=== PATIENT | female | born 1985 | race African-American/Black ===

== ENCOUNTER 2016-07-19 23:17 | Emergency (ER) | payer MEDICAID ==
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
[2016-07-20 02:27] VITALS: BP 135/85
--- NOTE | 2016-07-20 10:36 | EKG REPORT ---
SEVERITY:- OTHERWISE NORMAL ECG - SINUS TACHYCARDIA : Confirmed by: Jerry Hart 20-Jul-2016 10:35:08
== END 2016-07-20 03:21 | disposition home or self-care (01) ==
LOC: ER 23:17
DX: F43.0 Acute stress reaction (principal); R07.89 Other chest pain; R00.2 Palpitations; I10 Essential (primary) hypertension; F17.200 Nicotine dependence, unspecified, uncomplicated
CPT/HCPCS: 93005; 93010; 99284

== ENCOUNTER → 2016-08-08 | Outpatient (CLI) | payer MEDICAID, OTHER ==
[2016-08-08 13:45] LABS: ABSOLUTE BASOPHILS # (AUTO) 0.1 10^3/uL (0.0-0.2); ABSOLUTE EOSINOPHILS # (AUTO) 0.1 10^3/uL (0.0-0.6); ABSOLUTE MONOCYTES (AUTO) 0.3 10^3/uL (0.1-1.4); ABSOLUTE NEUT (AUTO) 6.6 10^3/uL (1.7-8.2); BASOPHILS % (AUTO) 0.9 % (0-2); EOSINOPHILS % (AUTO) 0.6 % (0-6); HEMATOCRIT 36.1 % (36.0-47.0); HEMOGLOBIN 12.1 g/dL (12.0-15.5); HGB HCT DIFFERENCE 0.2; LYMPHOCYTES % (AUTO) 22.2 % (13-45); MEAN CORPUSCULAR HEMOGLOBIN 30.1 pg (27.0-33.4); MEAN CORPUSCULAR HGB CONC 33.5 g/dL (32.0-36.0); MEAN CORPUSCULAR VOLUME 90 fl (80-97); MONOCYTES % (AUTO) 3.2 % (3-13); RED BLOOD COUNT 4.01 10^6/uL (3.72-5.28); RED CELL DISTRIBUTION WIDTH 13.6 % (11.5-14.0); SEGMENTED NEUTROPHILS % (AUTO) 73.1 % (42-78)
[2016-08-08 14:02] LABS: ALANINE AMINOTRANSFERASE 28 U/L (9-52); ALBUMIN 4.5 g/dL (3.5-5.0); ALKALINE PHOSPHATASE 58 U/L (38-126); ANION GAP 12 (5-19); ASPARTATE AMINO TRANSFERASE 27 U/L (14-36); BILIRUBIN,TOTAL 0.6 mg/dL (0.2-1.3); BLOOD UREA NITROGEN 10 mg/dL (7-20); CALCIUM 10.4 mg/dL (8.4-10.2); CARBON DIOXIDE 21 mmol/L (22-30); CHLORIDE 105 mmol/L (98-107); CREATININE RESULT 0.71 mg/dL (0.52-1.25); GLUCOSE 115 mg/dL (75-110); POTASSIUM 4.6 mmol/L (3.6-5.0); SODIUM 138.2 mmol/L (137-145); TOTAL PROTEIN 7.9 g/dL (6.3-8.2)
--- NOTE | 2016-08-08 18:07 | EKG REPORT ---
SEVERITY:- NORMAL ECG - SINUS RHYTHM : Confirmed by: Sasha Hernandez MD 08-Aug-2016 18:06:29
== END ==
LOC: OD 12:27
PROVIDERS: ATTEND Nurse Practitioner Acute Care
DX: R42 Dizziness and giddiness (principal)
CPT/HCPCS: 36415; 80053; 83036; 84443; 85025; 93005; 93010

== ENCOUNTER 2016-10-09 21:23 | Emergency (ER) | payer MEDICAID ==
[2016-10-09 23:02] VITALS: BP 124/87
--- NOTE | 2016-10-09 23:19 | ER Document Report ---
ED General - General Chief Complaint: Foot Injury Stated Complaint: RIGHT FOOT PAIN Notes: Patient is a 31 year old female who says that she was wrestling with a friend earlier today. She has some pain in her foot during this. As the day went on her foot became more painful swollen. Pain is at the first MTP of the right foot. She does have a bunion over the area but says this has been there for a while and is nothing new. No other trauma or injuries. No pain in the ankle or knee. No other complaints at this time. TRAVEL OUTSIDE OF THE [place] IN LAST 30 DAYS: No - Related Data Allergies/Adverse Reactions: cinnamon [Cinnamon] Allergy (Verified 10/09/16 23:42) Penicillins Allergy (Verified 10/09/16 23:42) Past Medical History - Social History Smoking Status: Never Smoker Frequency of alcohol use: None Drug Abuse: None Family History: Arthritis, CAD - Mother [place], CVA, DM, Hyperlipidemia, Hypertension - Past Medical History Cardiac Medical History: Reports: Hx Hypertension - unmedicated Neurological Medical History: Reports: Hx Migraine Renal/ Medical History: Reports: Hx Ovarian Cysts. Denies: Hx Peritoneal Dialysis GI Medical History: Reports: Hx Crohn's Disease, Hx Gastroesophageal Reflux Disease, Hx Irritable Bowel, Hx Colonoscopy, Hx Endoscopy Musculoskeltal Medical History: Reports Hx Arthritis, Reports Hx Musculoskeletal Deformity, Reports Hx Musculoskeletal Trauma Psychiatric Medical History: Reports: Hx Anxiety, Hx Bipolar Disorder, Hx Depression, Hx Post Traumatic Stress Disorder Past Surgical History: Reports: Hx Gynecologic Surgery - ovarian cyst - Immunizations Immunizations up to date: Yes Hx Diphtheria, Pertussis, Tetanus Vaccination: Yes Hx Pneumococcal Vaccination: 03/15/14 Review of Systems - Review of Systems Notes: My Normal Review Basic REVIEW OF SYSTEMS: CONSTITUTIONAL : Denies fever, chills, or sweats. Denies recent illness. MUSCULOSKELETAL: Pain over right first MTP joint. SKIN: Denies rash or skin lesions. NEUROLOGICAL: Denies altered mental status or loss of consciousness. Denies headache. Denies weakness or paralysis or loss of use of either side. Denies problems with gait or speech. Denies sensory or motor loss. ALL OTHER SYSTEMS REVIEWED AND NEGATIVE. Physical Exam - Vital signs Vitals: Temp Pulse Resp BP Pulse Ox 98.3 F 85 15 124/87 H 100 10/09/16 23:00 10/09/16 23:00 10/09/16 23:00 10/09/16 23:00 10/09/16 23:00 - Notes Notes: General Appearance: Well nourished, alert, cooperative, no acute distress, mild obvious discomfort. Vitals: reviewed, See vital signs table. Extremities: strength 5/5 in all extremities, good pulses in all extremities, small bunion over right first MTP. No redness or warmth over the area. Pain to palpation over this joint. Pain with movement of the big toe. Remainder foot is nontender. Ankle is nontender. Skin: warm, dry, appropriate color, no rash Neuro: speech clear, oriented x 3, normal affect, responds appropriately to questions. Course - Vital Signs Vital signs: Temp Pulse Resp BP Pulse Ox 98.3 F 85 15 124/87 H 100 10/09/16 23:00 10/09/16 23:00 10/09/16 23:00 10/09/16 23:00 10/09/16 23:00 - Transfer of Care Notes: 10/10/16 06:14 Patient will be discharged home. Her x-ray is negative. She most likely has a sprain of her first metatarsophalangeal joint. Patient will be given crutches and a postop hard shoe. Patient encouraged to follow closely with her primary care doctor. Patient currently is return to ER she has further concerns. Patient agrees with plan will be discharged home. Dictation of this chart was performed using voice recognition software; therefore, there may be some unintended grammatical errors. Discharge - Discharge Clinical Impression: Strain of toe of right foot Qualifiers: Encounter type: initial encounter Qualified Code(s): S96.911A - Strain of unspecified muscle and tendon at ankle and foot level, right foot, initial encounter Condition: Good Disposition: HOME, SELF-CARE Additional Instructions: Please use the crutches as needed for pain with weight bearing. Please use the hard sole velcroe shoe we have given you. Please follow up with your doctor in 1 week. I have included the number to the orthopedist for you to follow up with if you are unable to get into a primary care doctor and still have pain after one week. Referrals: ROSALIE RM MD [Primary Care Provider] - Follow up as needed DAWIT WHITING MD [ACTIVE STAFF] - Follow up in 1 week
== END 2016-10-10 00:20 | disposition home or self-care (01) ==
LOC: ER 21:23
DX: S96.911A Strain of unspecified muscle and tendon at ankle and foot level, right foot, initial encounter (principal); M79.671 Pain in right foot; X58.XXXA Exposure to other specified factors, initial encounter
CPT/HCPCS: 99283

== ENCOUNTER 2017-01-11 16:07 | Emergency (ER) | payer MEDICAID ==
[2017-01-11] MEDS ORDERED: NORMAL SALINE 1000 ML 1,000 ML IV PRN (17:06)
--- NOTE | 2017-01-11 17:06 | ER Document Report ---
ED Medical Screen (RME) - General Chief Complaint: Dizziness Stated Complaint: DIZZY,WEAK Time Seen by Provider: 01/11/17 16:59 Mode of Arrival: Ambulatory Information source: Patient TRAVEL OUTSIDE OF THE [place] IN LAST 30 DAYS: No - HPI Patient complains to provider of: Dizziness, nausea Notes: 01/11/17 17:05 Patient is a 31-year-old female who presents to the emergency room complaining of nausea, dizziness, lightheadedness, pressure in her head, causing "fluid leakage from my brain down the back of my throat", she reports that this is been going on since April but getting worse causing her to come to the ER for visit today - Related Data Allergies/Adverse Reactions: cinnamon [Cinnamon] Allergy (Verified 01/11/17 16:29) Penicillins Allergy (Verified 01/11/17 16:29) Past Medical History - Social History Chew tobacco use (# tins/day): No Frequency of alcohol use: None Drug Abuse: None - Past Medical History Cardiac Medical History: Reports: Hx Hypertension - unmedicated Neurological Medical History: Reports: Hx Migraine Renal/ Medical History: Reports: Hx Ovarian Cysts. Denies: Hx Peritoneal Dialysis GI Medical History: Reports: Hx Crohn's Disease, Hx Gastroesophageal Reflux Disease, Hx Irritable Bowel, Hx Colonoscopy, Hx Endoscopy Musculoskeltal Medical History: Reports Hx Arthritis, Reports Hx Musculoskeletal Deformity, Reports Hx Musculoskeletal Trauma Psychiatric Medical History: Reports: Hx Anxiety, Hx Bipolar Disorder, Hx Depression, Hx Post Traumatic Stress Disorder Past Surgical History: Reports: Hx Gynecologic Surgery - ovarian cyst - Immunizations Immunizations up to date: Yes Hx Diphtheria, Pertussis, Tetanus Vaccination: Yes Physical Exam - Vital signs Vitals: Temp Pulse Resp BP Pulse Ox 98.9 F 104 H 16 142/101 H 100 01/11/17 16:29 01/11/17 16:29 01/11/17 16:29 01/11/17 16:29 01/11/17 16:29 Course - Vital Signs Vital signs: Temp Pulse Resp BP Pulse Ox 98.9 F 104 H 16 142/101 H 100 01/11/17 16:29 01/11/17 16:29 01/11/17 16:29 01/11/17 16:29 01/11/17 16:29
[2017-01-11 17:43] LABS: ABSOLUTE BASOPHILS # (AUTO) 0.2 10^3/uL (0.0-0.2); ABSOLUTE EOSINOPHILS # (AUTO) 0.1 10^3/uL (0.0-0.6); ABSOLUTE LYMPHOCYTES (AUTO) 2.9 10^3/uL (0.5-4.7); ABSOLUTE NEUT (AUTO) 10.5 10^3/uL (1.7-8.2); BASOPHILS % (AUTO) 1.2 % (0-2); EOSINOPHILS % (AUTO) 0.9 % (0-6); HEMATOCRIT 40.4 % (36.0-47.0); HGB HCT DIFFERENCE -1.4; LYMPHOCYTES % (AUTO) 19.9 % (13-45); MEAN CORPUSCULAR HEMOGLOBIN 29.1 pg (27.0-33.4); MEAN CORPUSCULAR HGB CONC 32.2 g/dL (32.0-36.0); MEAN CORPUSCULAR VOLUME 90 fl (80-97); MONOCYTES % (AUTO) 6.6 % (3-13); RED BLOOD COUNT 4.48 10^6/uL (3.72-5.28); RED CELL DISTRIBUTION WIDTH 13.6 % (11.5-14.0); SEGMENTED NEUTROPHILS % (AUTO) 71.4 % (42-78); WHITE BLOOD COUNT 14.7 10^3/uL (4.0-10.5)
[2017-01-11 17:47] LABS: APPEARANCE,URINE CLEAR; BILIRUBIN,URINE NEGATIVE (NEGATIVE); GLUCOSE, URINE NEGATIVE (NEGATIVE); KETONES,URINE NEGATIVE (NEGATIVE); LEUKOCYTE ESTERASE,URINE NEGATIVE (NEGATIVE); NITRITE,URINE NEGATIVE (NEGATIVE); PROTEIN,URINE NEGATIVE (NEGATIVE); URINE SPECIFIC GRAVITY 1.006; UROBILINOGEN,URINE NEGATIVE mg/dL (<2.0)
[2017-01-11 17:56] LABS: ALANINE AMINOTRANSFERASE 21 U/L (9-52); ALKALINE PHOSPHATASE 70 U/L (38-126); ANION GAP 15 (5-19); ASPARTATE AMINO TRANSFERASE 17 U/L (14-36); BILIRUBIN,DIRECT 0.2 mg/dL (0.0-0.4); BILIRUBIN,TOTAL 0.7 mg/dL (0.2-1.3); BLOOD UREA NITROGEN 9 mg/dL (7-20); CALCIUM 10.5 mg/dL (8.4-10.2); CARBON DIOXIDE 22 mmol/L (22-30); CHLORIDE 102 mmol/L (98-107); CREATININE RESULT 0.87 mg/dL (0.52-1.25); GLUCOSE 92 mg/dL (75-110); POTASSIUM 4.5 mmol/L (3.6-5.0); TOTAL PROTEIN 9.1 g/dL (6.3-8.2)
[2017-01-11 17:59] LABS: URINE BARBITURATES SCREEN NEGATIVE; URINE METHADONE SCREEN NEGATIVE; URINE OPIATES LOW NEGATIVE; URINE PHENCYCLIDINE SCREEN NEGATIVE
--- NOTE | 2017-01-11 19:46 | ER Document Report ---
ED Dizziness/Weakness - General Chief Complaint: Dizziness Stated Complaint: DIZZY,WEAK Time Seen by Provider: 01/11/17 16:59 Mode of Arrival: Ambulatory Information source: Patient TRAVEL OUTSIDE OF THE [place] IN LAST 30 DAYS: No - HPI Patient complains to provider of: Dizziness Onset: Other - 6 months Onset/Duration: Waxing and waning Quality of pain: Achy Severity: Mild Pain Level: 1 Associated symptoms: Headache, Lightheaded, Weak all over Notes: Patient is a 31-year-old female who presents to the emergency room complaining of nausea, dizziness, lightheadedness, pressure in her head, causing "fluid leakage from my brain down the back of my throat", she reports that this is been going on since April but getting worse causing her to come to the ER for visit today - Related Data Allergies/Adverse Reactions: cinnamon [Cinnamon] Allergy (Verified 01/11/17 16:29) Penicillins Allergy (Verified 01/11/17 16:29) Past Medical History - General Information source: Patient - Social History Smoking Status: Never Smoker Chew tobacco use (# tins/day): No Frequency of alcohol use: None Drug Abuse: None Family History: Arthritis, CAD - Mother [place], CVA, DM, Hyperlipidemia, Hypertension - Past Medical History Cardiac Medical History: Reports: Hx Hypertension - unmedicated Neurological Medical History: Reports: Hx Migraine Renal/ Medical History: Reports: Hx Ovarian Cysts. Denies: Hx Peritoneal Dialysis GI Medical History: Reports: Hx Crohn's Disease, Hx Gastroesophageal Reflux Disease, Hx Irritable Bowel, Hx Colonoscopy, Hx Endoscopy Musculoskeltal Medical History: Reports Hx Arthritis, Reports Hx Musculoskeletal Deformity, Reports Hx Musculoskeletal Trauma Psychiatric Medical History: Reports: Hx Anxiety, Hx Bipolar Disorder, Hx Depression, Hx Post Traumatic Stress Disorder Past Surgical History: Reports: Hx Gynecologic Surgery - ovarian cyst - Immunizations Immunizations up to date: Yes Hx Diphtheria, Pertussis, Tetanus Vaccination: Yes Hx Pneumococcal Vaccination: 03/15/14 Review of Systems - Review of Systems Constitutional: No symptoms reported EENT: See HPI Cardiovascular: Dizziness, Lightheaded Respiratory: No symptoms reported Gastrointestinal: No symptoms reported Genitourinary: No symptoms reported Female Genitourinary: No symptoms reported Musculoskeletal: No symptoms reported Skin: No symptoms reported Hematologic/Lymphatic: No symptoms reported Neurological/Psychological: Headaches -: Yes All other systems reviewed and negative Physical Exam - Vital signs Vitals: Temp Pulse Resp BP Pulse Ox 98.9 F 104 H 16 142/101 H 100 01/11/17 16:29 01/11/17 16:29 01/11/17 16:29 01/11/17 16:29 01/11/17 16:29 Interpretation: Normal - General General appearance: Appears well, Alert - HEENT Head: Normocephalic, Atraumatic Eyes: Normal Conjunctiva: Normal Extraocular movements intact: Yes Eyelashes: Normal Pupils: PERRL Tympanic membrane: Bulging. No: Injected Sinus: Maxillary, Tenderness Nasal: Swelling, Clear rhinorrhea Mouth/Lips: Normal Mucous membranes: Normal Pharynx: Erythema Neck: Normal - Respiratory Respiratory status: No respiratory distress Chest status: Nontender Breath sounds: Normal Chest palpation: Normal - Cardiovascular Rhythm: Regular Heart sounds: Normal auscultation Murmur: No - Abdominal Inspection: Normal Distension: No distension Bowel sounds: Normal Tenderness: Nontender Organomegaly: No organomegaly - Back Back: Normal, Nontender - Extremities General upper extremity: Normal inspection, Nontender, Normal color, Normal ROM , Normal temperature General lower extremity: Normal inspection, Nontender, Normal color, Normal ROM , Normal temperature, Normal weight bearing. No: Keya's sign - Neurological Neuro grossly intact: Yes Cognition: Normal Orientation: AAOx4 [place] Coma Scale Eye Opening: Spontaneous [place] Coma Scale Verbal: Oriented [place] Coma Scale Motor: Obeys Commands [place] Coma Scale Total: 15 Speech: Normal Motor strength normal: LUE, RUE, LLE, RLE Sensory: Normal - Psychological Associated symptoms: Normal affect, Normal mood - Skin Skin Temperature: Warm Skin Moisture: Dry Skin Color: Normal Course - Re-evaluation Re-evalutation: 01/11/17 21:24 Patient reports feeling much better after receiving IV fluids, leukocytosis is consistent with possible infection, I believe patient's symptoms are likely related to a sinus infection with postnasal drip causing her to feel the sensation of fluid dripping down her throat and giving her a foul taste in her mouth at times, therefore patient was started on antibiotics and provided with prescription for antihistamine and decongestant medication, advised to follow- up with a primary care provider in 2-3 days or return if symptoms worsen, patient acknowledges understanding and agreement with this plan - Vital Signs Vital signs: Temp Pulse Resp BP Pulse Ox 98.7 F 87 16 144/96 H 99 01/11/17 20:04 01/11/17 20:04 01/11/17 20:04 01/11/17 20:04 01/11/17 20:04 - Laboratory Result Diagrams: 01/11/17 17:12 01/11/17 17:12 Laboratory results interpreted by me: 01/11/17 01/11/17 17:12 17:12 WBC 14.7 H Absolute Neutrophils 10.5 H Calcium 10.5 H Total Protein 9.1 H Discharge - Discharge Clinical Impression: Sinusitis Qualifiers: Sinusitis location: maxillary Chronicity: acute Recurrence: non-recurrent Qualified Code(s): J01.00 - Acute maxillary sinusitis, unspecified Condition: Stable Disposition: HOME, SELF-CARE Instructions: Dizziness ([facility]), Sinusitis ([facility]) Additional Instructions: Follow up with your primary care provider in one to 2 days. Return to the emergency room immediately if symptoms worsen or any additional concerns. Prescriptions: Doxycycline Hyclate 100 mg PO BID #14 tablet Ibuprofen/Pseudoephedrine HCl [Advil Cold & Sinus Caplet] 1 each PO BID #14 tablet
[2017-01-11 20:06] VITALS: BP 144/96
== END 2017-01-11 20:07 | disposition home or self-care (01) ==
LOC: ER 16:07
DX: J01.00 Acute maxillary sinusitis, unspecified (principal); R42 Dizziness and giddiness; R51 Headache; R53.1 Weakness; R11.0 Nausea; I10 Essential (primary) hypertension; J34.89 Other specified disorders of nose and nasal sinuses; Z88.0 Allergy status to penicillin; Z91.018 Allergy to other foods
CPT/HCPCS: 99284; 96360; 36415; 87086; 84703; 85025; 80053; 81001; 80307; J7030

== ENCOUNTER 2017-03-16 09:54 | Emergency (ER) | payer MEDICAID ==
[2017-03-16 10:18] VITALS: BP 121/83
--- NOTE | 2017-03-16 10:42 | ER Document Report ---
ED GI/ - General Chief Complaint: Urinary Problem Stated Complaint: URINARY PAIN Time Seen by Provider: 03/16/17 10:32 Mode of Arrival: Ambulatory Information source: Patient Notes: 32-year-old female presents to ED for hematuria 3 days with painful urination, patient's states she was treated for yeast infection 2 weeks ago and she still has the same symptoms has not had any relief from the symptoms. TRAVEL OUTSIDE OF THE [place] IN LAST 30 DAYS: No - HPI Patient complains to provider of: Hematuria, Vaginal discharge, Other - Urinary pain frequency blood Onset: Other - 3 days Timing/Duration: Intermittent Quality of pain: Burning, Sharp Pain Level: 4 Location: Left flank, Suprapubic, Vaginal Vaginal bleeding (Compared to normal period): None Associated symptoms: Vaginal discharge Exacerbated by: Other - urination Relieved by: Denies Similar symptoms previously: Yes Recently seen / treated by doctor: Yes - Related Data Allergies/Adverse Reactions: cinnamon [Cinnamon] Allergy (Verified 03/16/17 10:20) Penicillins Allergy (Verified 03/16/17 10:20) Past Medical History - General Information source: Patient - Social History Smoking Status: Former Smoker Cigarette use (# per day): No Chew tobacco use (# tins/day): No Smoking Education Provided: No Frequency of alcohol use: Social Drug Abuse: None Occupation: Call center Lives with: Family Family History: Arthritis, CAD - Mother [place], CVA, DM, Hyperlipidemia, Hypertension Patient has suicidal ideation: No Patient has homicidal ideation: No EENT Medical History: Reports: None Neurological Medical History: Reports: None Endocrine Medical History: Reports: None Renal/ Medical History: Reports: Hx Ovarian Cysts Malignancy Medical History: Reports: None GI Medical History: Reports: Hx Gastroesophageal Reflux Disease, Hx Irritable Bowel, Hx Colonoscopy Musculoskeltal Medical History: Reports Hx Musculoskeletal Deformity, Reports Hx Musculoskeletal Trauma Psychiatric Medical History: Reports: Hx Anxiety, Hx Bipolar Disorder, Hx Depression, Hx Post Traumatic Stress Disorder Traumatic Medical History: Reports: None Infectious Medical History: Reports: None Past Surgical History: Reports: Hx Gynecologic Surgery - ovarian cyst - Immunizations Immunizations up to date: Yes Hx Diphtheria, Pertussis, Tetanus Vaccination: Yes Hx Pneumococcal Vaccination: 03/15/14 Review of Systems - Review of Systems Constitutional: No symptoms reported EENT: No symptoms reported Cardiovascular: No symptoms reported Respiratory: No symptoms reported Gastrointestinal: No symptoms reported Genitourinary: Burning, Frequency, Hematuria, Urgency Female Genitourinary: Vaginal discharge Musculoskeletal: No symptoms reported Skin: No symptoms reported Hematologic/Lymphatic: No symptoms reported Neurological/Psychological: No symptoms reported Physical Exam - Vital signs Vitals: Temp Pulse Resp BP Pulse Ox 98.1 F 78 16 121/83 99 03/16/17 10:15 03/16/17 10:15 03/16/17 10:15 03/16/17 10:15 03/16/17 10:15 Interpretation: Normal - General General appearance: Appears well, Alert - HEENT Head: Normocephalic, Atraumatic Eyes: Normal Pupils: PERRL - Respiratory Respiratory status: No respiratory distress Chest status: Nontender Breath sounds: Normal Chest palpation: Normal - Cardiovascular Rhythm: Regular Heart sounds: Normal auscultation Murmur: No - Abdominal Inspection: Normal Distension: No distension Bowel sounds: Normal Tenderness: Nontender Organomegaly: No organomegaly - Back Back: Normal, Nontender - Extremities General upper extremity: Normal inspection, Nontender, Normal color, Normal ROM , Normal temperature General lower extremity: Normal inspection, Nontender, Normal color, Normal ROM , Normal temperature, Normal weight bearing. No: Keya's sign - Neurological Neuro grossly intact: Yes Cognition: Normal Orientation: AAOx4 [place] Coma Scale Eye Opening: Spontaneous [place] Coma Scale Verbal: Oriented [place] Coma Scale Motor: Obeys Commands [place] Coma Scale Total: 15 Speech: Normal Motor strength normal: LUE, RUE, LLE, RLE Sensory: Normal - Psychological Associated symptoms: Normal affect, Normal mood - Skin Skin Temperature: Warm Skin Moisture: Dry Skin Color: Normal Course - Re-evaluation Re-evalutation: 03/16/17 12:41 Discussed labs with patient and written reports given to patient. Patient knows she is to give a good working number to the nurses so they can call results of GC chlamydia. Patient will be treated with azithromycin and Rocephin prophylactically. - Vital Signs Vital signs: Temp Pulse Resp BP Pulse Ox 98.1 F 78 16 121/83 99 03/16/17 10:15 03/16/17 10:15 03/16/17 10:15 03/16/17 10:15 03/16/17 10:15 - Laboratory Laboratory results interpreted by me: 03/16/17 03/16/17 10:20 10:42 Ur Leukocyte Esterase TRACE H Urine Ascorbic Acid 40 H 40 H Discharge - Discharge Clinical Impression: Pelvic pain Vaginitis Qualifiers: Chronicity: acute Qualified Code(s): N76.0 - Acute vaginitis Condition: Stable Disposition: HOME, SELF-CARE Additional Instructions: VAGINITIS: Your exam shows that you have vaginitis, a vaginal infection. The infection can be caused by a many different organisms, including trichomonas or Gardnerella. The usual symptoms are vaginal irritation and discharge. The treatment is usually antibiotics such as Flagyl. Laboratory tests can determine which germ is responsible. Use the medication as prescribed. Because this infection can be transmitted sexually, your sexual partner may need to be checked and treated also. If your physician has not discussed this with you, please check before resuming sexual relations. If a culture shows gonorrhea or chlamydia, the infection must be reported to the health department. Call the doctor if you develop pelvic pain, fever, or problems with urination, or if you don't improve as expected. CEPHALOSPORINS: An antibiotic of the cephalosporin class has been prescribed. This type of antibiotic covers a wide variety of infections, including those of the skin, lungs, middle ear, and urinary tract. This antibiotic is somewhat similar to the penicillin family. In rare cases , a person who is allergic to penicillin will also be allergic to this medication. If you have had a severe allergic reaction to penicillin, and have not taken this antibiotic since that time, notify your doctor. Antibiotics which cover many germs ("broad spectrum" antibiotics) are more likely to cause diarrhea or "yeast" infections. Women prone to vaginal yeast problems may suffer an attack after taking this antibiotic. In infants, oral thrush (white spots "stuck" on the cheek) or yeast diaper rash may result. See your doctor if these problems occur. Call the doctor at once if you develop hives, itching, shortness of breath , or lightheadedness. AZITHROMYCIN: Azithromycin (Zithromax) is a broad spectrum antibiotic in the same class as erythromycin. It can treat a variety of bacterial infections, but is most frequently used for respiratory infections. Azithromycin is extremely long-lasting. It accumulates in body tissues and continues to kill bacteria for many days. In order to improve absorption, Azithromycin should be taken at least one hour before or two hours after a meal. It does not have the same strong tendency to upset the stomach as erythromycin and is usually very well tolerated. Patients who have had a rash or other true allergic reactions to erythromycin should not take this medication. Call if you develop gastrointestinal distress, severe diarrhea, rash, hives, itching, or shortness of breath. FOLLOW-UP CARE: If you have been referred to a physician for follow-up care, call the physician s office for an appointment as you were instructed or within the next two days. If you experience worsening or a significant change in your symptoms, notify the physician immediately or return to the Emergency Department at any time for re-evaluation. Forms: Return to Work Referrals: ROSALIE RM MD [Primary Care Provider] - Follow up as needed [facility] [Provider Group] - Follow up as needed
[2017-03-16 11:05] LABS: APPEARANCE,URINE SLIGHTLY-CLOUDY; BILIRUBIN,URINE NEGATIVE (NEGATIVE); GLUCOSE, URINE NEGATIVE (NEGATIVE); KETONES,URINE NEGATIVE (NEGATIVE); LEUKOCYTE ESTERASE,URINE TRACE (NEGATIVE); NITRITE,URINE NEGATIVE (NEGATIVE); PROTEIN,URINE NEGATIVE (NEGATIVE); URINE SPECIFIC GRAVITY 1.026; UROBILINOGEN,URINE NEGATIVE mg/dL (<2.0)
[2017-03-16] MEDS ORDERED: AZITHROMYCIN 250 MG TABLET PO ONE (11:59)
[2017-03-16] MEDS ORDERED: LIDOCAINE 1% INJ-PF (10 MG/ML) 30 ML SDV INJ ONE (11:59)
[2017-03-16] MEDS ORDERED: CEFTRIAXONE INJ 250 MG VIAL IM ONE (11:59)
[2017-03-16 12:00] LABS: APPEARANCE,URINE CLEAR; BILIRUBIN,URINE NEGATIVE (NEGATIVE); GLUCOSE, URINE NEGATIVE (NEGATIVE); KETONES,URINE NEGATIVE (NEGATIVE); LEUKOCYTE ESTERASE,URINE NEGATIVE (NEGATIVE); NITRITE,URINE NEGATIVE (NEGATIVE); PROTEIN,URINE NEGATIVE (NEGATIVE); URINE SPECIFIC GRAVITY 1.025; UROBILINOGEN,URINE NEGATIVE mg/dL (<2.0)
[2017-03-16 13:15] LABS: CHLAM PCR NOT DETECTED (NOT DETECT)
== END 2017-03-16 13:13 | disposition home or self-care (01) ==
LOC: ER 09:54
DX: N76.0 Acute vaginitis (principal); R10.2 Pelvic and perineal pain; R31.9 Hematuria, unspecified; R35.0 Frequency of micturition; R39.15 Urgency of urination; Z91.018 Allergy to other foods; Z88.0 Allergy status to penicillin; Z87.42 Personal history of other diseases of the female genital tract; Z87.19 Personal history of other diseases of the digestive system
CPT/HCPCS: 99283; 96372; 51701; 87210; 81025; 81001; 87491; 87591; Q0144; J3490; J0696

== ENCOUNTER 2017-06-17 16:40 | Emergency (ER) | payer MEDICAID ==
[2017-06-17 20:39] LABS: APPEARANCE,URINE CLOUDY; BILIRUBIN,URINE NEGATIVE (NEGATIVE); COLOR,URINE YELLOW; GLUCOSE, URINE NEGATIVE (NEGATIVE); KETONES,URINE NEGATIVE (NEGATIVE); LEUKOCYTE ESTERASE,URINE NEGATIVE (NEGATIVE); NITRITE,URINE NEGATIVE (NEGATIVE); PROTEIN,URINE NEGATIVE (NEGATIVE); URINE SPECIFIC GRAVITY 1.025
[2017-06-17 20:44] LABS: BACTERIA (WET MOUNT) 3+ BACTERIA SEEN; EPITHELIALS (WET MOUNT) 4+ EPITHELIALS SEEN; T.VAGINALIS (WET MOUNT) NO TRICHOMONAS SEEN; WBCS (WET MOUNT) RARE WBCS SEEN; YEAST (WET MOUNT) NO YEAST SEEN
[2017-06-17] MEDS ORDERED: LIDOCAINE 1% INJ-PF (10 MG/ML) 30 ML SDV INJ ONE (21:05)
[2017-06-17] MEDS ORDERED: AZITHROMYCIN 250 MG TABLET PO ONE (21:05)
[2017-06-17] MEDS ORDERED: CEFTRIAXONE INJ 250 MG VIAL IM ONE (21:05)
[2017-06-17] MEDS ORDERED: METRONIDAZOLE 500 MG TABLET PO ONE (21:06)
--- NOTE | 2017-06-17 21:09 | ER Document Report ---
HPI - HPI Patient complains to provider of: vaginal discharge, pelvic pain Pain Level: 4 Context: Patient is a 32-year-old female that comes emergency department for chief complaint of pelvic cramping, vaginal discharge, and a bad odor. She denies dysuria. She denies flank pain, nausea or vomiting, fever or chills. She states she is sexually active, she is unsure if she may have had exposure to an STD. - REPRODUCTIVE Reproductive: REPORTS: Abnormal bleeding / discharge - foul smelling. DENIES: : Past Medical History - General Information source: Patient - Social History Smoking Status: Current Some Day Smoker Chew tobacco use (# tins/day): No Frequency of alcohol use: Social Drug Abuse: None Lives with: Family Family History: Arthritis, CAD - Mother [place], CVA, DM, Hyperlipidemia, Hypertension Patient has suicidal ideation: No Patient has homicidal ideation: No - Past Medical History Cardiac Medical History: Reports: Hx Hypertension - unmedicated Neurological Medical History: Reports: Hx Migraine Renal/ Medical History: Reports: Hx Ovarian Cysts. Denies: Hx Peritoneal Dialysis GI Medical History: Reports: Hx Crohn's Disease, Hx Gastroesophageal Reflux Disease, Hx Irritable Bowel, Hx Colonoscopy, Hx Endoscopy Musculoskeltal Medical History: Reports Hx Arthritis, Reports Hx Musculoskeletal Deformity, Reports Hx Musculoskeletal Trauma Psychiatric Medical History: Reports: Hx Anxiety, Hx Bipolar Disorder, Hx Depression, Hx Post Traumatic Stress Disorder Past Surgical History: Reports: Hx Gynecologic Surgery - ovarian cyst - Immunizations Immunizations up to date: Yes Hx Diphtheria, Pertussis, Tetanus Vaccination: Yes Hx Pneumococcal Vaccination: 03/15/14 Vertical Provider Document - CONSTITUTIONAL General Appearance: WD/WN, No Apparent Distress - INFECTION CONTROL TRAVEL OUTSIDE OF THE [place] IN LAST 30 DAYS: No - HEENT HEENT: Atraumatic, Normal ENT Exam, Normocephalic - RESPIRATORY Respiratory: Breath Sounds Normal, No Respiratory Distress O2 Sat by Pulse Oximetry: 98 - CARDIOVASCULAR Cardiovascular: Regular Rate, Regular Rhythm - GI/ABDOMEN Gastrointestinal: Abdomen Soft, Abdomen Non-Tender - REPRODUCTIVE Female Genitalia: negative: Normal Inspection - Normal external inspection, on speculum exam there is moderately large amount of whitish discharge, there is odor, cervix unremarkable, no bleeding, no lesions, otherwise unremarkable examination. FAY Maya present during examination. - NEURO Level of Consciousness: Awake, Alert, Appropriate Motor/Sensory: No Motor Deficit, No Sensory Deficit - DERM Integumentary: Warm, Dry, No Rash Course - Re-evaluation Re-evalutation: Patient with no noted tenderness to the abdomen on palpation, no guarding, well- appearing patient, unremarkable vital signs. HCG is negative, urinalysis unremarkable. Pelvic exam with foul odor and moderately large amount of whitish discharge, 3+ bacteria on wet mount, consistent with bacterial vaginosis. No yeast, negative Trichomonas, only a few white blood cells. Discussed this with patient, because of questionable exposure she is asking to be treated and then have her pending results reported later. Discussed precautions, follow-up, return precautions. Patient states understanding and agreement. 06/18/17 01:00 Called patient at [phone] as she requested and reported negative pending results. - Vital Signs Vital signs: Temp Pulse Resp BP Pulse Ox 98.6 F 87 20 118/69 98 06/17/17 16:45 06/17/17 16:45 06/17/17 16:45 06/17/17 16:45 06/17/17 16:45 - Laboratory Laboratory results interpreted by me: 06/17/17 20:16 Urine Urobilinogen 2.0 H Discharge - Discharge Clinical Impression: Vaginal discharge, Pelvic pain Condition: Stable Disposition: HOME, SELF-CARE Additional Instructions: Your workup indicates bacterial vaginosis, take Flagyl as prescribed for this. See additional details below. You have been covered for pelvic infection, we have remaining tests pending which you will be contacted about. Follow-up with primary care. Return for any concerning or worsening symptoms including vomiting, fever, severe pain, etc. Your exam shows you have bacterial vaginosis. This condition is due to an overgrowth of bacteria in the vagina. Symptoms may include vaginal itching or pain, a smelly discharge, and sometimes burning with urination. Normally this is not transmitted by sexual contact. Vaginosis can be treated with oral or topical antibiotics. Metronidazole ( Flagyl) pills are usually effective. Topical vaginal creams include Cleocin and Metro-Gel. You should avoid sexual contact until your symptoms are all better. Call the doctor if you develop pelvic pain, fever, or problems with urination, or if you don't improve as expected. Prescriptions: Metronidazole [Flagyl 500 mg Tablet] 500 mg PO BID #14 tablet
[2017-06-17 21:29] VITALS: BP 121/75
[2017-06-17 22:10] LABS: CHLAM PCR NOT DETECTED (NOT DETECT); GON PCR NOT DETECTED (NOT DETECT)
== END 2017-06-17 21:25 | disposition home or self-care (01) ==
LOC: ER 16:40
DX: N89.8 Other specified noninflammatory disorders of vagina (principal); R10.2 Pelvic and perineal pain; F17.200 Nicotine dependence, unspecified, uncomplicated
CPT/HCPCS: 99283; 96372; 87210; 81025; 81001; 87491; 87591; Q0144; J3490 ×2; J0696

== ENCOUNTER 2017-06-28 11:35 | Emergency (ER) | payer MEDICAID ==
--- NOTE | 2017-06-28 12:47 | ER Document Report ---
HPI - HPI Patient complains to provider of: cervix lump Onset: Other - yesterday Pain Level: 4 Context: 32 yo female has cervix pain, felt inside and said that she had a lump on her cervix which she thinks may be causing the pain. Seen in ER 1 week ago, tx for std, BV, (cx were negtive). No fever, dysuria, vaginal discharge. Associated Symptoms: None Exacerbated by: Denies Relieved by: Denies Similar symptoms previously: No Recently seen / treated by doctor: No - ROS ROS below otherwise negative: Yes Systems Reviewed and Negative: Yes All other systems reviewed and negative - REPRODUCTIVE Reproductive: DENIES: : Past Medical History - General Information source: Patient - Social History Smoking Status: Current Some Day Smoker Chew tobacco use (# tins/day): No Frequency of alcohol use: Occasional Drug Abuse: None Family History: Arthritis, CAD - Mother [place], CVA, DM, Hyperlipidemia, Hypertension Patient has suicidal ideation: No Patient has homicidal ideation: No - Past Medical History Cardiac Medical History: Reports: Hx Hypertension - unmedicated Neurological Medical History: Reports: Hx Migraine Renal/ Medical History: Reports: Hx Ovarian Cysts. Denies: Hx Peritoneal Dialysis GI Medical History: Reports: Hx Crohn's Disease, Hx Gastroesophageal Reflux Disease, Hx Irritable Bowel, Hx Colonoscopy, Hx Endoscopy Musculoskeltal Medical History: Reports Hx Arthritis, Reports Hx Musculoskeletal Deformity, Reports Hx Musculoskeletal Trauma Psychiatric Medical History: Reports: Hx Anxiety, Hx Bipolar Disorder, Hx Depression, Hx Post Traumatic Stress Disorder Past Surgical History: Reports: Hx Gynecologic Surgery - ovarian cyst - Immunizations Immunizations up to date: Yes Hx Diphtheria, Pertussis, Tetanus Vaccination: Yes Hx Pneumococcal Vaccination: 03/15/14 Vertical Provider Document - CONSTITUTIONAL Agree With Documented VS: Yes Exam Limitations: No Limitations General Appearance: No Apparent Distress - INFECTION CONTROL TRAVEL OUTSIDE OF THE [place] IN LAST 30 DAYS: No - HEENT HEENT: Normal ENT Exam - NECK Neck: Supple. negative: Lymphadenopathy-Left, Lymphadenopathy-Right - RESPIRATORY Respiratory: Breath Sounds Normal, No Respiratory Distress O2 Sat by Pulse Oximetry: 100 - CARDIOVASCULAR Cardiovascular: Regular Rate, Regular Rhythm - GI/ABDOMEN Gastrointestinal: Abdomen Soft, Abdomen Non-Tender, No Organomegaly - REPRODUCTIVE Female Genitalia: Normal Inspection. negative: CMT, Adnexal Pain-Right, Adnexal Pain-Left Notes: cervix normal, no discharge. No lesions on cervix. Nurse at bedside for pelvic exam. Course - Re-evaluation Re-evalutation: 06/28/17 labs negative. - Vital Signs Vital signs: Temp Pulse Resp BP Pulse Ox 98.5 F 78 18 132/80 H 100 06/28/17 11:40 06/28/17 11:40 06/28/17 11:40 06/28/17 11:40 06/28/17 11:40 Discharge - Discharge Clinical Impression: cerivx pain Condition: Good Disposition: HOME, SELF-CARE Instructions: Pelvic Pain ([facility]) Additional Instructions: call and schedule appt with obgyn doctor for your symptoms the work up in the ER today was normal, STD cultures pending again call me in 3 days for the results [phone] to er if worse Referrals: VIOLETA DAVIS MD [ACTIVE STAFF] - Follow up as needed
[2017-06-28 13:49] LABS: RBCS (WET MOUNT) RARE RBCS SEEN; T.VAGINALIS (WET MOUNT) NO TRICHOMONAS SEEN; WBCS (WET MOUNT) FEW WBCS SEEN; YEAST (WET MOUNT) NO YEAST SEEN
[2017-06-28 14:25] LABS: APPEARANCE,URINE SLIGHTLY-CLOUDY; BILIRUBIN,URINE NEGATIVE (NEGATIVE); COLOR,URINE YELLOW; GLUCOSE, URINE NEGATIVE (NEGATIVE); KETONES,URINE NEGATIVE (NEGATIVE); LEUKOCYTE ESTERASE,URINE SMALL (NEGATIVE); NITRITE,URINE NEGATIVE (NEGATIVE); PROTEIN,URINE NEGATIVE (NEGATIVE); URINE SPECIFIC GRAVITY 1.021
[2017-06-28 15:16] LABS: CHLAM PCR NOT DETECTED (NOT DETECT); GON PCR NOT DETECTED (NOT DETECT)
[2017-06-28 15:41] VITALS: BP 130/78
== END 2017-06-28 15:41 | disposition home or self-care (01) ==
LOC: ER 11:35
DX: R10.2 Pelvic and perineal pain (principal); F17.200 Nicotine dependence, unspecified, uncomplicated; I10 Essential (primary) hypertension
CPT/HCPCS: 81001; 81025; 87086; 87210; 87491; 87591; 99284

== ENCOUNTER 2017-10-24 03:51 | Emergency (ER) | payer MEDICAID ==
--- NOTE | 2017-10-24 04:44 | ER Document Report ---
HPI - HPI Patient complains to provider of: pelvic pain, vaginal discharge, anal itching Pain Level: 4 Context: Patient is a 32-year-old female who comes emergency department for chief complaint of lower abdominal discomfort with vaginal discharge, she states she has had this recurring several times, she states she has not been sexually active this year, she denies bleeding, she denies fever or chills, she reports normal bowel movements. She denies nausea or vomiting. She also states that she is getting a lot of itching rectally and she passed something in her stool that "looked like a worm". She has not noticed any abnormality with her child. - REPRODUCTIVE Reproductive: DENIES: : Past Medical History - General Information source: Patient - Social History Smoking Status: Never Smoker Frequency of alcohol use: None Drug Abuse: None Lives with: Family Family History: Arthritis, CAD - Mother [place], CVA, DM, Hyperlipidemia, Hypertension - Past Medical History Cardiac Medical History: Reports: Hx Hypertension - unmedicated Neurological Medical History: Reports: Hx Migraine Renal/ Medical History: Reports: Hx Ovarian Cysts. Denies: Hx Peritoneal Dialysis GI Medical History: Reports: Hx Crohn's Disease, Hx Gastroesophageal Reflux Disease, Hx Irritable Bowel, Hx Colonoscopy, Hx Endoscopy Musculoskeltal Medical History: Reports Hx Arthritis, Reports Hx Musculoskeletal Deformity, Reports Hx Musculoskeletal Trauma Psychiatric Medical History: Reports: Hx Anxiety, Hx Bipolar Disorder, Hx Depression, Hx Post Traumatic Stress Disorder Past Surgical History: Reports: Hx Gynecologic Surgery - ovarian cyst - Immunizations Immunizations up to date: Yes Hx Diphtheria, Pertussis, Tetanus Vaccination: Yes Hx Pneumococcal Vaccination: 03/15/14 Vertical Provider Document - INFECTION CONTROL TRAVEL OUTSIDE OF THE [place] IN LAST 30 DAYS: No - HEENT HEENT: Atraumatic, Normal ENT Exam, Normocephalic - NECK Neck: Normal Inspection - RESPIRATORY Respiratory: Breath Sounds Normal, No Respiratory Distress - CARDIOVASCULAR Cardiovascular: Regular Rate, Regular Rhythm - GI/ABDOMEN Gastrointestinal: Abdomen Soft. negative: Abdomen Non-Tender - Patient has minimal generalized lower abdominal tenderness which is very nonspecific and mild. No guarding, rigidity, or rebound tenderness - REPRODUCTIVE Female Genitalia: negative: Normal Inspection - Moderate amount of whitish vaginal discharge, no bleeding, no lesions, unremarkable exam otherwise including no cervical motion tenderness. Exam completed with PCT Karissa at bedside., Adnexal Pain-Right, Adnexal Pain-Left - BACK Back: Normal Inspection - NEURO Level of Consciousness: Awake, Alert, Appropriate Course - Re-evaluation Re-evalutation: Abdomen soft and benign. Patient does have vaginal discharge and bacteria on wet mount suggesting active vaginosis. She has had this several times in the past. No evidence of PID, acute abdomen, patient is very well-appearing. Patient reporting anal pruritus and thinks she passed a worm. Discussed options but patient wishes to be treated for possible pinworm. She was provided with Flagyl and albendazole. Discussed follow-up, recommendations, return precautions, patient states understanding and agreement. - Vital Signs Vital signs: Temp Pulse Resp BP Pulse Ox 98.7 F 98 18 134/85 H 100 10/24/17 04:10 10/24/17 04:10 10/24/17 04:10 10/24/17 04:10 10/24/17 04:10 Discharge - Discharge Clinical Impression: Vaginal discharge, Anal itching Disposition: HOME, SELF-CARE Additional Instructions: Your examination is consistent with bacterial vaginosis. Remaining workup does not show any concerning findings. Take the Flagyl as prescribed, consider taking over the counter pro-biotics. See additional instructions for this below. Because of anal itching and possible passing of egg or worm we are treating you with albendazole for this. Take as directed. Follow-up with primary care. Return for any concerning symptoms. Vaginosis, Bacterial Your exam shows you have bacterial vaginosis. This condition is due to an overgrowth of bacteria in the vagina. Symptoms may include vaginal itching or pain, a smelly discharge, and sometimes burning with urination. Normally this is not transmitted by sexual contact. Vaginosis can be treated with oral or topical antibiotics. Metronidazole ( Flagyl) pills are usually effective. Topical vaginal creams include Cleocin and Metro-Gel. You should avoid sexual contact until your symptoms are all better. Call the doctor if you develop pelvic pain, fever, or problems with urination, or if you don't improve as expected. Prescriptions: Albendazole [Albenza] 400 mg PO ASDIR #2 tablet Metronidazole [Flagyl 500 mg Tablet] 500 mg PO BID #14 tablet
[2017-10-24 05:54] LABS: T.VAGINALIS (WET MOUNT) NO TRICHOMONAS SEEN; WBCS (WET MOUNT) 1+ WBCS SEEN; YEAST (WET MOUNT) NO YEAST SEEN
[2017-10-24 05:55] LABS: BACTERIA (WET MOUNT) 4+ BACTERIA SEEN; EPITHELIALS (WET MOUNT) 4+ EPITHELIALS SEEN; RBCS (WET MOUNT) RARE RBCS SEEN
[2017-10-24 06:26] LABS: APPEARANCE,URINE SLIGHTLY-CLOUDY; BILIRUBIN,URINE NEGATIVE (NEGATIVE); COLOR,URINE YELLOW; GLUCOSE, URINE NEGATIVE (NEGATIVE); KETONES,URINE NEGATIVE (NEGATIVE); LEUKOCYTE ESTERASE,URINE NEGATIVE (NEGATIVE); NITRITE,URINE NEGATIVE (NEGATIVE); PROTEIN,URINE NEGATIVE (NEGATIVE); URINE SPECIFIC GRAVITY 1.023; UROBILINOGEN,URINE NEGATIVE mg/dL (<2.0)
[2017-10-24 07:15] VITALS: BP 116/88
[2017-10-24 07:19] LABS: CHLAM PCR NOT DETECTED (NOT DETECT); GON PCR NOT DETECTED (NOT DETECT)
== END 2017-10-24 07:15 | disposition home or self-care (01) ==
LOC: ER 03:51
DX: N89.8 Other specified noninflammatory disorders of vagina (principal); L29.0 Pruritus ani; R10.2 Pelvic and perineal pain; I10 Essential (primary) hypertension; Z87.42 Personal history of other diseases of the female genital tract; Z87.19 Personal history of other diseases of the digestive system
CPT/HCPCS: 81001; 81025; 87210; 87491; 87591; 99283

== ENCOUNTER 2018-06-01 15:57 | Emergency (ER) | payer MEDICAID ==
[2018-06-01] MEDS ORDERED: OXYMETAZOLINE HCL 0.05% NASAL SPRAY 15 ML BOTTLE NASL ONE (16:46)
--- NOTE | 2018-06-01 16:46 | ER Document Report ---
ED Medical Screen (RME) - General Chief Complaint: Sinus Pain Stated Complaint: EYE/SINUS PAIN Time Seen by Provider: 06/01/18 16:45 Mode of Arrival: Ambulatory Information source: Patient Notes: 33-year-old female presents with multiple vague complaints including right eye redness, nasal congestion, white vaginal discharge that started 4 days prior to arrival. I have greeted and performed a rapid initial assessment of this patient. A comprehensive ED assessment and evaluation of the patient, analysis of test results and completion of medical decision making process we will be contacted by additional ED providers. PHYSICAL EXAMINATION: Vital signs reviewed-within normal limits GENERAL: Well-appearing, well-nourished and in no acute distress. LUNGS: No respiratory distress Musculoskeletal: Normal range of motion NEUROLOGICAL: Normal speech, normal gait. PSYCH: Normal mood, normal affect. SKIN: Warm, Dry, normal turgor, no rashes or lesions noted. TRAVEL OUTSIDE OF THE [place] IN LAST 30 DAYS: No - HPI Onset: Other Onset/Duration: Gradual Quality of pain: Burning Severity: Mild Associated Symptoms: Cough (productive), Rhinorrhea, Sinus pain/drainage. denies: Fever Exacerbated by: Denies Relieved by: Denies Similar symptoms previously: No Recently seen / treated by doctor: No - Related Data Smoking: Non-smoker Frequency of alcohol use: None Drug Abuse: None Allergies/Adverse Reactions: cinnamon [Cinnamon] Allergy (Verified 06/28/17 11:38) Penicillins Allergy (Verified 06/28/17 11:38) Past Medical History - General Last Menstrual Period: 05/26/18 - Past Medical History Cardiac Medical History: Reports: Hx Hypertension - unmedicated Neurological Medical History: Reports: Hx Migraine Renal/ Medical History: Reports: Hx Ovarian Cysts. Denies: Hx Peritoneal Dialysis GI Medical History: Reports: Hx Crohn's Disease, Hx Gastroesophageal Reflux Disease, Hx Irritable Bowel, Hx Colonoscopy, Hx Endoscopy Musculoskeltal Medical History: Reports Hx Arthritis, Reports Hx Musculoskeletal Deformity, Reports Hx Musculoskeletal Trauma Psychiatric Medical History: Reports: Hx Anxiety, Hx Bipolar Disorder, Hx Depression, Hx Post Traumatic Stress Disorder Past Surgical History: Reports: Hx Gynecologic Surgery - ovarian cyst - Immunizations Immunizations up to date: Yes Hx Diphtheria, Pertussis, Tetanus Vaccination: Yes Physical Exam - Vital signs Vitals: Temp Pulse Resp BP Pulse Ox 98.6 F 78 15 124/75 99 06/01/18 16:09 06/01/18 16:09 06/01/18 16:09 06/01/18 16:09 06/01/18 16:09 Course - Vital Signs Vital signs: Temp Pulse Resp BP Pulse Ox 98.6 F 78 15 124/75 99 06/01/18 16:09 06/01/18 16:09 06/01/18 16:09 06/01/18 16:09 06/01/18 16:09
--- NOTE | 2018-06-01 18:26 | ER Document Report ---
ED General - General Chief Complaint: Sinus Pain Stated Complaint: EYE/SINUS PAIN Time Seen by Provider: 06/01/18 16:45 Mode of Arrival: Ambulatory Information source: Patient Notes: This is a 33-year-old female presenting to the emergency room with vaginal discharge for 2 weeks, thrush for 1 week, sinus congestion for 4 days and pinkeye involving the right eye for 2 days. Patient denies any fever or chills. Patient is sexually active. She is not on any control. Last normal menstrual period 2 weeks ago. TRAVEL OUTSIDE OF THE [place] IN LAST 30 DAYS: No - HPI Onset: Last week Onset/Duration: Gradual Quality of pain: No pain Severity: None Pain Level: Denies Associated symptoms: denies: Chest pain, Fever, Shortness of breath Exacerbated by: Denies Relieved by: Denies Similar symptoms previously: Yes Recently seen / treated by doctor: No - Related Data Allergies/Adverse Reactions: cinnamon [Cinnamon] Allergy (Verified 06/28/17 11:38) Penicillins Allergy (Verified 06/28/17 11:38) Past Medical History - General Information source: Patient Last Menstrual Period: 05/26/18 - Social History Smoking Status: Never Smoker Cigarette use (# per day): No Chew tobacco use (# tins/day): No Frequency of alcohol use: None Drug Abuse: None Lives with: Family Family History: Arthritis, CAD - Mother [place], CVA, DM, Hyperlipidemia, Hypertension Patient has suicidal ideation: No Patient has homicidal ideation: No - Past Medical History Cardiac Medical History: Reports: Hx Hypertension - unmedicated Neurological Medical History: Reports: Hx Migraine Renal/ Medical History: Reports: Hx Ovarian Cysts. Denies: Hx Peritoneal Dialysis GI Medical History: Reports: Hx Crohn's Disease, Hx Gastroesophageal Reflux Disease, Hx Irritable Bowel, Hx Colonoscopy, Hx Endoscopy Musculoskeletal Medical History: Reports Hx Arthritis, Reports Hx Musculoskeletal Deformity, Reports Hx Musculoskeletal Trauma Psychiatric Medical History: Reports: Hx Anxiety, Hx Bipolar Disorder, Hx Depression, Hx Post Traumatic Stress Disorder Past Surgical History: Reports: Hx Gynecologic Surgery - ovarian cyst - Immunizations Immunizations up to date: Yes Hx Diphtheria, Pertussis, Tetanus Vaccination: Yes Hx Pneumococcal Vaccination: 03/15/14 Review of Systems - Review of Systems Constitutional: Chills EENT: See HPI Cardiovascular: No symptoms reported Respiratory: No symptoms reported Gastrointestinal: No symptoms reported Genitourinary: No symptoms reported Female Genitourinary: See HPI Musculoskeletal: No symptoms reported Skin: No symptoms reported Hematologic/Lymphatic: No symptoms reported Neurological/Psychological: No symptoms reported Physical Exam - Vital signs Vitals: Temp Pulse Resp BP Pulse Ox 98.6 F 78 15 124/75 99 06/01/18 16:09 06/01/18 16:09 06/01/18 16:09 06/01/18 16:09 06/01/18 16:09 Notes: Physical exam: GENERAL: Patient is alert and oriented x3, no acute distress HEAD: Atraumatic, normocephalic. EYES: Conjunctival injected on the right, clear on the left. Extraocular muscles intact. No complaints of changes of vision. No pain with extraocular muscles. Pupils equally round and reactive to light ENT: TMs normal, nares patent, oropharynx shows possible mild thrush. Posterior pharynx is clear. Moist mucous membranes. NECK: Normal range of motion, supple without obvious mass or JVD. LUNGS: Breath sounds clear to auscultation bilaterally and equal. No wheezes rales or rhonchi. HEART: Regular rate and rhythm without murmurs, rubs or gallops. ABDOMEN: Soft, normoactive bowel sounds. No tenderness to palpation. No guarding, no rebound. No masses appreciated. Pelvic: Performed with train system operator (Leeanna PCT): External genitalia normal, scant watery discharge in the vault. Cervix appears normal. No cervical motion tenderness, adnexal tenderness or masses. EXTREMITIES: Normal range of motion, no pitting or edema. No clubbing or cyanosis. NEUROLOGICAL: Cranial nerves II through XII grossly intact. Normal speech, moving all extremities. PSYCH: Normal mood, normal affect. SKIN: Warm, Dry, normal turgor, no rashes or lesions noted. Course - Re-evaluation Re-evalutation: 06/01/18 20:15 Note: I did see a fair amount of discharge coming out of the cervix, and as I was withdrawing the speculum because it was compressing on the cervix. I had already gotten a sample and was unable to quickly get the sample that I saw. Some going to give her some azithromycin given the vaginal discharge and conjunctivitis. I do not see anything that looks like gonorrhea. Patient has had sinus type symptoms and she clearly has a right conjunctivitis. - Vital Signs Vital signs: Temp Pulse Resp BP Pulse Ox 98.6 F 81 17 125/89 H 100 06/01/18 20:43 06/01/18 20:43 06/01/18 20:43 06/01/18 20:43 06/01/18 20:43 - Laboratory Result Diagrams: 06/01/18 18:30 Laboratory results interpreted by me: 06/01/18 18:30 Calcium 10.4 H Discharge - Discharge Clinical Impression: Conjunctivitis right eye, Thrush Condition: Stable Disposition: HOME, SELF-CARE Additional Instructions: Use the drops as prescribed: 2 drops the first day in the right eye, then 1 drop each day for the following 4 days. Take the Z-Chago as prescribed. Rest, drink plenty of fluids, follow-up with your primary care doctor. 1 week after the antibiotics, you can take the fluconazole pill for yeast. Return to the emergency room for any concerns that she getting worse. Prescriptions: Azithromycin [Zithromax 250 mg Tablet] 250 mg PO ASDIR PRN #6 tablet PRN Reason: Azithromycin [Azasite] 2.5 ml OP DAILY #6 drops Fluconazole [Diflucan] 150 mg PO ONCE PRN #1 tablet PRN Reason: Forms: Return to Work
[2018-06-01 18:44] LABS: BACTERIA (WET MOUNT) 3+ BACTERIA SEEN; EPITHELIALS (WET MOUNT) 4+ EPITHELIALS SEEN; T.VAGINALIS (WET MOUNT) NO TRICHOMONAS SEEN; WBCS (WET MOUNT) RARE WBCS SEEN; YEAST (WET MOUNT) NO YEAST SEEN
[2018-06-01 19:10] LABS: ANION GAP 7 (5-19); BLOOD UREA NITROGEN 8 mg/dL (7-20); CALCIUM 10.4 mg/dL (8.4-10.2); CARBON DIOXIDE 29 mmol/L (22-30); CHLORIDE 105 mmol/L (98-107); GLUCOSE 92 mg/dL (75-110); POTASSIUM 4.1 mmol/L (3.6-5.0); SODIUM 140.6 mmol/L (137-145)
[2018-06-01 20:03] LABS: CHLAM PCR NOT DETECTED (NOT DETECT); GON PCR NOT DETECTED (NOT DETECT)
[2018-06-01 20:45] VITALS: BP 125/89
== END 2018-06-01 20:46 | disposition home or self-care (01) ==
LOC: ER 15:57
DX: H10.9 Unspecified conjunctivitis (principal); B37.9 Candidiasis, unspecified; I10 Essential (primary) hypertension
CPT/HCPCS: 99283; 36415; 87210; 84702; 80048; 87491; 87591; J3490

== ENCOUNTER 2018-07-31 05:06 | Emergency (ER) | payer MEDICAID ==
[2018-07-31 06:44] LABS: ABSOLUTE EOSINOPHILS # (AUTO) 0.2 10^3/uL (0.0-0.6); ABSOLUTE MONOCYTES (AUTO) 0.7 10^3/uL (0.1-1.4); BASOPHILS % (AUTO) 0.6 % (0-2); EOSINOPHILS % (AUTO) 2.2 % (0-6); HEMATOCRIT 35.4 % (36.0-47.0); HEMOGLOBIN 11.7 g/dL (12.0-15.5); LYMPHOCYTES % (AUTO) 25.2 % (13-45); MEAN CORPUSCULAR HEMOGLOBIN 29.3 pg (27.0-33.4); MEAN CORPUSCULAR VOLUME 89 fl (80-97); MONOCYTES % (AUTO) 8.4 % (3-13); PLATELET COUNT 353 10^3/uL (150-450); RED BLOOD COUNT 3.97 10^6/uL (3.72-5.28); RED CELL DISTRIBUTION WIDTH 13.6 % (11.5-14.0); SEGMENTED NEUTROPHILS % (AUTO) 63.6 % (42-78); TOTAL CELLS COUNTED % (AUTO) 100 %; WHITE BLOOD COUNT 7.8 10^3/uL (4.0-10.5)
[2018-07-31 06:57] LABS: ALANINE AMINOTRANSFERASE 15 U/L (9-52); ALBUMIN 4.1 g/dL (3.5-5.0); ALKALINE PHOSPHATASE 56 U/L (38-126); ANION GAP 8 (5-19); ASPARTATE AMINO TRANSFERASE 19 U/L (14-36); BILIRUBIN,TOTAL 0.6 mg/dL (0.2-1.3); BLOOD UREA NITROGEN 9 mg/dL (7-20); CALCIUM 8.9 mg/dL (8.4-10.2); CARBON DIOXIDE 22 mmol/L (22-30); CHLORIDE 111 mmol/L (98-107); CREATINE KINASE 51 U/L (30-135); GLUCOSE 93 mg/dL (75-110); LIPASE 49.3 U/L (23-300); POTASSIUM 4.2 mmol/L (3.6-5.0); SODIUM 140.7 mmol/L (137-145); TOTAL PROTEIN 7.1 g/dL (6.3-8.2)
[2018-07-31 07:11] LABS: CREATINE KINASE MB < 0.22 ng/mL (<4.55); TROPONIN I < 0.012 ng/mL
--- NOTE | 2018-07-31 07:22 | RADIOLOGY REPORT (SQ) ---
EXAM DESCRIPTION: XR CHEST 1 VIEW COMPLETED DATE/TME: 07/31/2018 06:14 CLINICAL HISTORY: 33 years Female, sob COMPARISON: 02/25/16 NUMBER OF VIEWS/TECHNIQUE: 1/AP FINDINGS: Adequate lung volume, clear parenchyma, normal cardiac silhouette, and intact bony thorax. IMPRESSION: No acute cardiopulmonary findings.
[2018-07-31] MEDS ORDERED: NORMAL SALINE 1000 ML 1,000 ML IV ONE (07:49)
--- NOTE | 2018-07-31 07:53 | ER Document Report ---
ED Dizziness/Weakness - General Chief Complaint: Fainting Stated Complaint: WEAKNESS Time Seen by Provider: 07/31/18 06:13 Primary Care Provider: GIGI JACKSON MD [COMMUNITY BASED STAFF] - Follow up as needed NITA BATISTA MD [ACTIVE STAFF] - Follow up as needed TRAVEL OUTSIDE OF THE [place] IN LAST 30 DAYS: No - HPI Patient complains to provider of: Other - Palpitation feeling faint Notes: Patient coming in for feeling faint and palpitations patient states started approximately 3 AM this morning woke her up out of her sleep. Patient states no unusual activities over the last 24 hours no new medications no [id number] medications no cough no chest pain no abdominal pain no nausea vomiting fevers or chills. Patient is unaware of her status at this time. Patient denies history of palpitations in the past. Patient states no excessive caffeine use. Patient does state that she does not drink a lot of water. Patient otherwise is resting comfortably upon my evaluation. - Related Data Allergies/Adverse Reactions: cinnamon [Cinnamon] Allergy (Verified 06/28/17 11:38) Penicillins Allergy (Verified 06/28/17 11:38) Past Medical History - Social History Smoking Status: Unknown if Ever Smoked Family History: Arthritis, CAD - Mother [place], CVA, DM, Hyperlipidemia, Hypertension Patient has suicidal ideation: No Patient has homicidal ideation: No - Past Medical History Cardiac Medical History: Reports: Hx Hypertension - unmedicated Neurological Medical History: Reports: Hx Migraine Renal/ Medical History: Reports: Hx Ovarian Cysts. Denies: Hx Peritoneal Dialysis GI Medical History: Reports: Hx Crohn's Disease, Hx Gastroesophageal Reflux Disease, Hx Irritable Bowel, Hx Colonoscopy, Hx Endoscopy Musculoskeletal Medical History: Reports Hx Arthritis, Reports Hx Musculoskeletal Deformity, Reports Hx Musculoskeletal Trauma Psychiatric Medical History: Reports: Hx Anxiety, Hx Bipolar Disorder, Hx Depression, Hx Post Traumatic Stress Disorder Past Surgical History: Reports: Hx Gynecologic Surgery - ovarian cyst - Immunizations Immunizations up to date: Yes Hx Diphtheria, Pertussis, Tetanus Vaccination: Yes Hx Pneumococcal Vaccination: 03/15/14 Review of Systems - Review of Systems Constitutional: No symptoms reported EENT: No symptoms reported Cardiovascular: No symptoms reported, Palpitations, Lightheaded Respiratory: No symptoms reported Gastrointestinal: No symptoms reported Genitourinary: No symptoms reported Female Genitourinary: No symptoms reported Musculoskeletal: No symptoms reported Skin: No symptoms reported Hematologic/Lymphatic: No symptoms reported Neurological/Psychological: No symptoms reported -: Yes All other systems reviewed and negative Physical Exam - Vital signs Vitals: Temp Pulse Resp BP Pulse Ox 98.4 F 79 16 118/81 100 07/31/18 05:12 07/31/18 05:12 07/31/18 05:12 07/31/18 05:12 07/31/18 05:12 Interpretation: Normal - General General appearance: Appears well, Alert - HEENT Head: Normocephalic, Atraumatic Eyes: Normal Pupils: PERRL - Respiratory Respiratory status: No respiratory distress Chest status: Nontender Breath sounds: Normal Chest palpation: Normal - Cardiovascular Rhythm: Regular Heart sounds: Normal auscultation Murmur: No - Abdominal Inspection: Normal Distension: No distension Bowel sounds: Normal Tenderness: Nontender Organomegaly: No organomegaly - Back Back: Normal, Nontender - Extremities General upper extremity: Normal inspection, Nontender, Normal color, Normal ROM, Normal temperature General lower extremity: Normal inspection, Nontender, Normal color, Normal ROM, Normal temperature, Normal weight bearing. No: Keya's sign - Neurological Neuro grossly intact: Yes Cognition: Normal Orientation: AAOx4 [place] Coma Scale Eye Opening: Spontaneous [place] Coma Scale Verbal: Oriented [place] Coma Scale Motor: Obeys Commands [place] Coma Scale Total: 15 Speech: Normal Motor strength normal: LUE, RUE, LLE, RLE Sensory: Normal - Psychological Associated symptoms: Normal affect, Normal mood - Skin Skin Temperature: Warm Skin Moisture: Dry Skin Color: Normal Course - Re-evaluation Re-evalutation: 07/31/18 07:52 Patient coming in for evaluation of palpitations. Patient will have laboratory studies performed. Check for electrolyte abnormalities. Patient does have PVCs on her EKG otherwise shows a sinus rhythm rate of 82 NC duration is 164 QRS duration is 88 QTC QTc corrected is 392 45 there is no T wave inversions no ST segment elevations or depressions. 08/01/18 07:04 Patient upon discharge admits that she has been eating especially beans are covered and chocolate. Patient was educated on the need to avoid excessive caffeine and other stimulus. - Vital Signs Vital signs: Temp Pulse Resp BP Pulse Ox 98.4 F 76 14 120/85 99 07/31/18 09:01 07/31/18 08:45 07/31/18 10:41 07/31/18 10:41 07/31/18 10:41 - Laboratory Result Diagrams: 07/31/18 06:26 07/31/18 06:26 Laboratory results interpreted by me: 07/31/18 07/31/18 06:26 06:26 Hgb 11.7 L Hct 35.4 L Chloride 111 H Discharge - Discharge Clinical Impression: Heart palpitations, Asymptomatic PVCs Condition: Good Disposition: HOME, SELF-CARE Instructions: Family Physicians / Practices, Palpitations (Irregular or Rapid Heartrate) ([facility]), PVCs ([facility]) Additional Instructions: Laboratory studies EKG today only shows an occasional skipped heartbeat called a PVC. He can follow-up with your primary care physician or physicians listed for further evaluation of these. I would highly recommend to stop eating the coffee beans avoiding stimulants such as coffee soda or any other substances t hat have caffeine in them also avoid stimulant such as [id number] cough medications. Please make sure you are drinking plenty of fluids return to ER symptoms worsen. Referrals: GIGI JACKSON MD [COMMUNITY BASED STAFF] - Follow up as needed NITA BATISTA MD [ACTIVE STAFF] - Follow up as needed
--- NOTE | 2018-07-31 08:43 | EKG REPORT ---
SEVERITY:- ABNORMAL ECG - SINUS RHYTHM MULTIFORM VENTRICULAR PREMATURE COMPLEXES : Confirmed by: Sasha Hernandez MD 31-Jul-2018 08:42:10
[2018-07-31 10:09] LABS: APPEARANCE,URINE CLOUDY; BILIRUBIN,URINE NEGATIVE (NEGATIVE); COLOR,URINE YELLOW; GLUCOSE, URINE NEGATIVE (NEGATIVE); KETONES,URINE NEGATIVE (NEGATIVE); LEUKOCYTE ESTERASE,URINE NEGATIVE (NEGATIVE); NITRITE,URINE NEGATIVE (NEGATIVE); PROTEIN,URINE NEGATIVE (NEGATIVE); URINE SPECIFIC GRAVITY 1.017; UROBILINOGEN,URINE NEGATIVE mg/dL (<2.0)
[2018-07-31 10:20] LABS: URINE AMPHETAMINES SCREEN NEGATIVE; URINE BARBITURATES SCREEN NEGATIVE; URINE BENZODIAZEPINES SCREEN NEGATIVE; URINE COCAINE SCREEN NEGATIVE; URINE MARIJUANA (THC) SCREEN UNCONFIRMED POSITIVE; URINE METHADONE SCREEN NEGATIVE; URINE PHENCYCLIDINE SCREEN NEGATIVE
[2018-07-31 10:44] VITALS: BP 120/85
== END 2018-07-31 10:49 | disposition home or self-care (01) ==
LOC: ER 05:06
DX: R00.2 Palpitations (principal); R53.1 Weakness; R55 Syncope and collapse; Z88.0 Allergy status to penicillin; I10 Essential (primary) hypertension
CPT/HCPCS: 93005; 99285; 96360; 36415; 82553; 82550; 83690; 83735; 84703; 85025; 80053; 81001; 84484; 80307; 71045; 93010; J7030

== ENCOUNTER 2018-08-01 11:28 | Emergency (ER) | payer MEDICAID ==
--- NOTE | 2018-08-01 13:10 | EKG REPORT ---
SEVERITY:- NORMAL ECG - SINUS RHYTHM : Confirmed by: Sasha Hernandez MD 01-Aug-2018 13:08:46
--- NOTE | 2018-08-01 13:26 | ER Document Report ---
Entered by ANTHONY BANSAL SCRIBE 08/01/18 1223 Acting as scribe for:QUIQUE DO DO ED Medical Screen (RME) - General Chief Complaint: Chest Pain Stated Complaint: CHEST PAIN Time Seen by Provider: 08/01/18 12:04 Mode of Arrival: Ambulatory Information source: Patient Notes: Patient is a 33 year old female presenting to the emergency department complaining of heart palpitations. Patient states she was seen in the emergency department complaining of similar problems and was discharged home with a diagnosis of asymptomatic PVCs and told to follow up with cardiology. Patient states her symptoms persist and she does not know what to do. She also reports being unable to sleep due to the palpitations. I have greeted and performed a rapid initial assessment of this patient. A comprehensive ED assessment and evaluation of the patient, analysis of test results and completion of the medical decision making process will be conducted by additional ED providers. GENERAL: Alert, appears anxious. No acute distress. HEAD: Normocephalic, Atraumatic. EYES: Pupils equal, round, and reactive to light. EOMI. ENT: Oral mucosa moist, tongue midline. NECK: Full range of motion. Supple. Trachea midline. LUNGS: Clear to auscultation bilaterally, no wheezes, rales, or rhonchi. No respiratory distress. HEART: Regular rate and rhythm. No murmurs, gallops, or rubs. ABDOMEN: Soft, non-tender. Non-distended. Bowel sounds present in all 4 quadrants. EXTREMITIES: Moves all four extremities spontaneously. PSYCH: Appears anxious. TRAVEL OUTSIDE OF THE [place] IN LAST 30 DAYS: No - Related Data Allergies/Adverse Reactions: cinnamon [Cinnamon] Allergy (Verified 08/01/18 11:29) Penicillins Allergy (Verified 08/01/18 11:29) Past Medical History - Past Medical History Cardiac Medical History: Reports: Hx Hypertension - unmedicated Neurological Medical History: Reports: Hx Migraine Renal/ Medical History: Reports: Hx Ovarian Cysts. Denies: Hx Peritoneal Dialysis GI Medical History: Reports: Hx Crohn's Disease, Hx Gastroesophageal Reflux Disease, Hx Irritable Bowel, Hx Colonoscopy, Hx Endoscopy Musculoskeltal Medical History: Reports Hx Arthritis, Reports Hx Musculoskeletal Deformity, Reports Hx Musculoskeletal Trauma Psychiatric Medical History: Reports: Hx Anxiety, Hx Bipolar Disorder, Hx Dep ression, Hx Post Traumatic Stress Disorder Past Surgical History: Reports: Hx Gynecologic Surgery - ovarian cyst - Immunizations Immunizations up to date: Yes Hx Diphtheria, Pertussis, Tetanus Vaccination: Yes Physical Exam - Vital signs Vitals: Temp Pulse Resp BP Pulse Ox 99.4 F 81 16 126/91 H 100 08/01/18 11:45 08/01/18 11:45 08/01/18 11:45 08/01/18 11:45 08/01/18 11:45 Course - Vital Signs Vital signs: Temp Pulse Resp BP Pulse Ox 99.4 F 81 16 126/91 H 100 08/01/18 11:45 08/01/18 11:45 08/01/18 11:45 08/01/18 11:45 08/01/18 11:45 I personally performed the services described in the documentation, reviewed and edited the documentation which was dictated to the scribe in my presence, and it accurately records my words and actions.
[2018-08-01 13:49] LABS: FREE T3 3.88 pg/mL (2.77-5.27); FREE T4 (FREE THYROXINE) 1.16 ng/dL (0.78-2.19)
[2018-08-01 14:03] LABS: THYROID STIMULATING HORMONE 1.62 uIU/mL (0.47-4.68)
--- NOTE | 2018-08-01 15:03 | ER Document Report ---
ED General - General Chief Complaint: Chest Pain Stated Complaint: CHEST PAIN Time Seen by Provider: 08/01/18 12:04 Mode of Arrival: Ambulatory TRAVEL OUTSIDE OF THE [place] IN LAST 30 DAYS: No - HPI Notes: Patient is a 33-year-old female that presents to the emergency department for chief complaint of palpitations. Patient reports palpitations that started yesterday morning. She was seen in the emergency room for her symptoms yesterday. She denies any change in her symptoms today but states they have not gone away. She states she feels her heart beating heavily. The palpitations are intermittent. She states she has occasionally felt lightheaded but denies any syncopal episodes. She denies any chest pain or dyspnea. Patient states she drinks very minimal water. She states her palpitations seem to be worse when she was up exerting herself and relieve some when she is at rest. Patient also endorses a lot of stress at home stating she is currently getting evicted from her house. She denies any suicidal or homicidal ideations. Past Medical History: PTSD Past Surgical History: Negative Social History: Occasional marijuana. Former smoker, denies alcohol Family History: Reviewed and noncontributory for presenting illness Allergies: Reviewed, see documented allergy list. REVIEW OF SYSTEMS: CONSTITUTIONAL : No fever No chills No diaphoresis No recent illness EENT: No vision changes No congestion No sore throat CARDIOVASCULAR: No chest pain palpitations RESPIRATORY: No shortness of breath No cough No difficulty breathing GASTROINTESTINAL: No abdominal pain No nausea No vomiting No diarrhea GENITOURINARY: No dysuria No hematuria No difficulty urinating MUSCULOSKELETAL: No back pain No leg pain No arm pain SKIN: No rashes No lesions LYMPHATIC: No swollen, enlarged glands. NEUROLOGICAL: lightheadedness No headache No weakness No paresthesias PSYCHIATRIC: No anxiety No depression PHYSICAL EXAMINATION: Vital signs reviewed, nursing noted reviewed. GENERAL: Well-appearing, well-nourished and in no acute distress. HEAD: Atraumatic, normocephalic. EYES: Eyes appear normal, extraocular movements intact, sclera anicteric, conjunctiva are normal. ENT: nares patent, oropharynx clear without exudates. Moist mucous membranes. NECK: Normal range of motion, supple without lymphadenopathy LUNGS: Breath sounds clear to auscultation bilaterally and equal. No wheezes rales or rhonchi. HEART: Regular rate and rhythm without murmurs ABDOMEN: Soft, nontender, normoactive bowel sounds. No rebound, guarding, or rigidity. No masses appreciated. EXTREMITIES: Nontender, good range of motion, no pitting or edema. NEUROLOGICAL: No focal neurological deficits. Moves all extremities spontan eously Motor and sensory grossly intact on exam. PSYCH: Normal mood, normal affect. SKIN: Warm, Dry, normal turgor, no rashes or lesions noted on exposed skin - Related Data Allergies/Adverse Reactions: cinnamon [Cinnamon] Allergy (Verified 08/01/18 11:29) Penicillins Allergy (Verified 08/01/18 11:29) Past Medical History - General Information source: Patient - Social History Smoking Status: Never Smoker Chew tobacco use (# tins/day): No Frequency of alcohol use: Occasional Drug Abuse: Marijuana Family History: Arthritis, CAD - Mother [place], CVA, DM, Hyperlipidemia, Hypertension Patient has suicidal ideation: No Patient has homicidal ideation: No - Past Medical History Cardiac Medical History: Reports: Hx Hypertension - unmedicated Neurological Medical History: Reports: Hx Migraine Renal/ Medical History: Reports: Hx Ovarian Cysts. Denies: Hx Peritoneal Dialysis GI Medical History: Reports: Hx Crohn's Disease, Hx Gastroesophageal Reflux Disease, Hx Irritable Bowel, Hx Colonoscopy, Hx Endoscopy Musculoskeletal Medical History: Reports Hx Arthritis, Reports Hx Musculoskeletal Deformity, Reports Hx Musculoskeletal Trauma Psychiatric Medical History: Reports: Hx Anxiety, Hx Bipolar Disorder, Hx Depression, Hx Post Traumatic Stress Disorder Past Surgical History: Reports: Hx Gynecologic Surgery - ovarian cyst - Immunizations Immunizations up to date: Yes Hx Diphtheria, Pertussis, Tetanus Vaccination: Yes Hx Pneumococcal Vaccination: 03/15/14 Physical Exam - Vital signs Vitals: Temp Pulse Resp BP Pulse Ox 99.4 F 81 16 126/91 H 100 08/01/18 11:45 08/01/18 11:45 08/01/18 11:45 08/01/18 11:45 08/01/18 11:45 Course - Re-evaluation Re-evalutation: 08/01/18 15:03 Vitals reviewed. Nursing notes reviewed. Patient is experiencing symptoms that correlate with PVCs I am seeing on her monitor. Her EKG did not show any PVCs but is otherwise unchanged from yesterday's. I reviewed her chart which shows a full cardiac workup yesterday that was normal. She had a negative chest x-ray. Patient's thyroid function today is also normal. Her symptoms are likely related to PVCs. I did talk to her at length about staying well-hydrated and avoiding stimulants. We discussed her PTSD and home stressors. She will be referred to [facility] for psychiatric care. She does not have any homicidal or suicidal ideations and is safe at home. She has been hemodynamically stable throughout her episodes of palpitations in the emergency room. She will be given Dr. Batista's phone number to discuss placing a Holter monitor if her symptoms persist. Patient counseled on return precautions. She is stable at time of discharge and further workup not currently indicated since she had a complete cardiac evaluation yesterday and her symptoms are unchanged since yesterday's presentation. Patient in agreement with plan of care. Laboratory 08/01/18 12:35 TSH 1.62 Free T4 1.16 Free T3 pg/mL 3.88 - Vital Signs Vital signs: Temp Pulse Resp BP Pulse Ox 99.4 F 81 15 114/88 H 100 08/01/18 11:45 08/01/18 11:45 08/01/18 14:01 08/01/18 14:00 08/01/18 14:01 - EKG Interpretation by Me Additional EKG results interpreted by me: 08/01/18 15:05 Interpreted by myself Normal sinus rhythm, no ectopy, normal axis, no STEMI, unchanged from 07/31/18 Discharge - Discharge Clinical Impression: Palpitations, PVC (premature ventricular contraction) Condition: Stable Disposition: HOME, SELF-CARE Instructions: Palpitations (Irregular or Rapid Heartrate) ([facility]), PVCs ([facility]) Additional Instructions: Please return to the emergency department if you have any worsening, or concern of your symptoms. Please return to the emergency department if you develop chest pain, difficulty breathing, severe abdominal pain, or ongoing vomiting. Please follow-up with your primary care physician in 2-3 days and any other recommended physicians. If prescribed, take all medications as directed. If you have any questions or concerns do not hesitate to return the emergency department for evaluation. Follow with Dr. Batista to have a Holter monitor placed if your symptoms continue Drink at least 8, 8 ounce glasses of water daily Avoid any stimulants including caffeine and sugars Forms: Return to Work Referrals: NITA BATISTA MD [ACTIVE STAFF] - Follow up in 3-5 days [facility] [Provider Group] - Follow up in 3-5 days
[2018-08-01 15:04] VITALS: BP 124/83
== END 2018-08-01 15:15 | disposition home or self-care (01) ==
LOC: ER 11:28
DX: I49.3 Ventricular premature depolarization (principal); R00.2 Palpitations; R07.9 Chest pain, unspecified; R42 Dizziness and giddiness; I10 Essential (primary) hypertension; Z79.899 Other long term (current) drug therapy; F12.90 Cannabis use, unspecified, uncomplicated
CPT/HCPCS: 36415; 84439; 84443; 84481; 93005; 93010; 99285

== ENCOUNTER 2018-08-21 08:53 | Emergency (ER) | payer MEDICAID ==
[2018-08-21] MEDS ORDERED: IBUPROFEN 800 MG TABLET PO ONE (09:39)
--- NOTE | 2018-08-21 09:44 | ER Document Report ---
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 Patient denies any injury to the foot or ankle but states after working her long shifts she noticed she had left ankle pain. Patient states that she did return to work last night but could not finish her shift and she has had worsening pain. Patient did attempt to wrap the ankle with an Chad wrap but this did not help her pain symptoms. Patient denies any history of known trauma. No fever. Associated Symptoms: Other - Left ankle pain Exacerbated by: Standing, Movement, Walking Relieved by: Denies Similar symptoms previously: No Recently seen / treated by doctor: No - ROS ROS below otherwise negative: Yes Systems Reviewed and Negative: Yes All other systems reviewed and negative - CONSTITUTIONAL Constitutional: DENIES: Fever, Chills - REPRODUCTIVE Reproductive: DENIES: : - MUSCULOSKELETAL Musculoskeletal: REPORTS: Extremity pain - left ankle - DERM Skin Color: Normal Skin Problems: None Past Medical History - General Information source: Patient - Social History Smoking Status: Current Some Day Smoker Chew tobacco use (# tins/day): No Frequency of alcohol use: Social Drug Abuse: None Occupation: Housekeeping Family History: Arthritis, CAD - Mother [place], CVA, DM, Hyperlipidemia, Hypertension Patient has suicidal ideation: No Patient has homicidal ideation: No Neurological Medical History: Reports: Hx Migraine Renal/ Medical History: Reports: Hx Ovarian Cysts. Denies: Hx Peritoneal Dialysis GI Medical History: Reports: Hx Crohn's Disease, Hx Gastroesophageal Reflux Disease, Hx Irritable Bowel, Hx Colonoscopy, Hx Endoscopy Musculoskeletal Medical History: Reports Hx Arthritis, Reports Hx Musculoskeletal Deformity, Reports Hx Musculoskeletal Trauma Psychiatric Medical History: Reports: Hx Anxiety, Hx Bipolar Disorder, Hx Depression, Hx Post Traumatic Stress Disorder Past Surgical History: Reports: Hx Gynecologic Surgery - ovarian cyst - Immunizations Immunizations up to date: Yes Hx Diphtheria, Pertussis, Tetanus Vaccination: Yes Hx Pneumococcal Vaccination: 03/15/14 Vertical Provider Document - CONSTITUTIONAL Agree With Documented VS: Yes Exam Limitations: No Limitations General Appearance: WD/WN, No Apparent Distress - INFECTION CONTROL TRAVEL OUTSIDE OF THE [place] IN LAST 30 DAYS: No - HEENT HEENT: Atraumatic, Normocephalic - NECK Neck: Normal Inspection - RESPIRATORY Respiratory: No Respiratory Distress - CARDIOVASCULAR Pulses: Normal: Dorsalis pedis - BACK Back: Normal Inspection - MUSCULOSKELETAL/EXTREMETIES Musculoskeletal/Extremeties: MAEW, Tender - Left ankle tenderness to medial malleolar area, no obvious edema. Normal skin color and temperature overlying joint. - NEURO Level of Consciousness: Awake, Alert, Appropriate Motor/Sensory: No Motor Deficit, No Sensory Deficit - DERM Integumentary: Warm, Dry, No Rash Course - Re-evaluation Re-evalutation: 08/21/18 09:40 Patient without any history of acute trauma, no concern for fracture at this time. Joints without any erythema or obvious swelling. No concern for septic arthritis. Will treat for sprain at this time. Good return precautions discussed. - Vital Signs Vital signs: Temp Pulse Resp BP Pulse Ox 98.4 F 91 16 139/81 H 100 08/21/18 09:03 08/21/18 09:03 08/21/18 09:03 08/21/18 09:03 08/21/18 09:03 Procedures - Immobilization Left Ankle Pre-Proc Neuro Vasc Exam: Normal Immobilizer type: Ankle stirrup Performed by: PCT Post-Proc Neuro Vasc Exam: Normal Alignment checked and good: Yes Discharge - Discharge Clinical Impression: Left ankle sprain Qualifiers: Encounter type: initial encounter Involved ligament of ankle: unspecified ligament Qualified Code(s): S93.402A - Sprain of unspecified ligament of left ankle, initial encounter Condition: Stable Disposition: HOME, SELF-CARE Instructions: Ankle Stirrup Splint ([facility]), Ice & Elevation ([facility]), Oral Narcotic Medication ([facility]), Sprained Ankle ([facility]) Additional Instructions: Return immediately for any new or worsening symptoms Followup with your primary care provider, call tomorrow to make a followup appointment Weightbearing as tolerated Follow-up with orthopedics for any persistent pain or problems Prescriptions: Hydrocodone/Acetaminophen [[place] 5-325 mg Tablet] 1 tab PO Q6 PRN #10 tablet PRN Reason: Naproxen [Naprosyn 250 Nmg Tablet] 1 tab PO BID #14 tablet Forms: Smoking Cessation Education, Return to Work Referrals: [facility] [Provider Group] - 08/23/18
[2018-08-21 10:07] VITALS: BP 136/81
== END 2018-08-21 10:09 | disposition home or self-care (01) ==
LOC: ER 08:53
DX: S93.402A Sprain of unspecified ligament of left ankle, initial encounter (principal); M25.572 Pain in left ankle and joints of left foot; X58.XXXA Exposure to other specified factors, initial encounter; F17.200 Nicotine dependence, unspecified, uncomplicated
CPT/HCPCS: 99283; L1902; J3490

== ENCOUNTER 2019-02-14 16:44 | Emergency (ER) | payer BC, MEDICAID ==
--- NOTE | 2019-02-14 17:17 | ER Document Report ---
ED Medical Screen (RME) - General Chief Complaint: Pelvic Pain Stated Complaint: PELVIC PAIN Time Seen by Provider: 02/14/19 17:09 Notes: Patient is a 34-year-old female presents to emergency department with multiple complaints. Patient reports that she has left lower dental pain that is been present for 1 week. She reports that she thinks she broke a tooth but she is unsure. Patient denies facial swelling. Patient also reports left ear popping. Patient also reports sinus pressure. Patient also complains of lower back pain and urinary frequency and urgency. Patient concern for urinary tract infection. Patient also reports having some bright red blood in her stool a few days ago. Patient reports at that time she was constipated and having a hard time passing a stool. Patient repeats since then she has had a bowel movement that did not have any blood in it. Patient does have a history of external hemorrhoids. Patient requesting a referral for gastroenterology. Patient also reports having right lower pelvic pain she ran into a table a few days ago. TRAVEL OUTSIDE OF THE [place] IN LAST 30 DAYS: No - Related Data Allergies/Adverse Reactions: cinnamon [Cinnamon] Allergy (Verified 02/14/19 16:45) Penicillins Allergy (Verified 02/14/19 16:45) Past Medical History - Social History Frequency of alcohol use: None Drug Abuse: None - Past Medical History Cardiac Medical History: Reports: Hx Hypertension - unmedicated Neurological Medical History: Reports: Hx Migraine Renal/ Medical History: Reports: Hx Ovarian Cysts. Denies: Hx Peritoneal Dialysis GI Medical History: Reports: Hx Crohn's Disease, Hx Gastroesophageal Reflux Disease, Hx Irritable Bowel, Hx Colonoscopy, Hx Endoscopy Musculoskeltal Medical History: Reports Hx Arthritis, Reports Hx Musculoskeletal Deformity, Reports Hx Musculoskeletal Trauma Psychiatric Medical History: Reports: Hx Anxiety, Hx Bipolar Disorder, Hx Depres chio, Hx Post Traumatic Stress Disorder Past Surgical History: Reports: Hx Gynecologic Surgery - ovarian cyst - Immunizations Immunizations up to date: Yes Hx Diphtheria, Pertussis, Tetanus Vaccination: Yes Physical Exam - Vital signs Vitals: Temp Pulse Resp BP Pulse Ox 98.4 F 93 18 120/74 98 02/14/19 16:48 02/14/19 16:48 02/14/19 16:48 02/14/19 16:48 02/14/19 16:48 Interpretation: Normal - Abdominal Inspection: Normal Distension: No distension Bowel sounds: Normal Tenderness: Nontender Organomegaly: No organomegaly Course - Re-evaluation Re-evalutation: 02/14/19 17:17 I have greeted and performed a rapid initial assessment of this patient. A comprehensive ED assessment and evaluation of the patient, analysis of test results and completion of the medical decision making process will be conducted by additional ED providers. - Vital Signs Vital signs: Temp Pulse Resp BP Pulse Ox 98.4 F 93 18 120/74 98 02/14/19 16:48 02/14/19 16:48 02/14/19 16:48 02/14/19 16:48 02/14/19 16:48
[2019-02-14 18:01] LABS: ABSOLUTE BASOPHILS # (AUTO) 0.2 10^3/uL (0.0-0.2); ABSOLUTE EOSINOPHILS # (AUTO) 0.2 10^3/uL (0.0-0.6); ABSOLUTE LYMPHOCYTES (AUTO) 2.6 10^3/uL (0.5-4.7); ABSOLUTE MONOCYTES (AUTO) 0.8 10^3/uL (0.1-1.4); BASOPHILS % (AUTO) 1.5 % (0-2); EOSINOPHILS % (AUTO) 1.8 % (0-6); HEMATOCRIT 33.7 % (36.0-47.0); HEMOGLOBIN 11.1 g/dL (12.0-15.5); LYMPHOCYTES % (AUTO) 24.3 % (13-45); MEAN CORPUSCULAR HEMOGLOBIN 29.1 pg (27.0-33.4); MEAN CORPUSCULAR HGB CONC 32.8 g/dL (32.0-36.0); MEAN CORPUSCULAR VOLUME 89 fl (80-97); MONOCYTES % (AUTO) 7.3 % (3-13); PLATELET COUNT 365 10^3/uL (150-450); RED CELL DISTRIBUTION WIDTH 13.6 % (11.5-14.0); SEGMENTED NEUTROPHILS % (AUTO) 65.1 % (42-78); TOTAL CELLS COUNTED % (AUTO) 100 %; WHITE BLOOD COUNT 10.7 10^3/uL (4.0-10.5)
[2019-02-14 18:06] LABS: APPEARANCE,URINE CLOUDY; BILIRUBIN,URINE NEGATIVE (NEGATIVE); COLOR,URINE YELLOW; GLUCOSE, URINE NEGATIVE (NEGATIVE); KETONES,URINE NEGATIVE (NEGATIVE); LEUKOCYTE ESTERASE,URINE NEGATIVE (NEGATIVE); NITRITE,URINE NEGATIVE (NEGATIVE); PROTEIN,URINE NEGATIVE (NEGATIVE); URINE SPECIFIC GRAVITY 1.016; UROBILINOGEN,URINE NEGATIVE mg/dL (<2.0)
[2019-02-14 18:19] LABS: ALBUMIN 4.3 g/dL (3.5-5.0); ALKALINE PHOSPHATASE 60 U/L (38-126); ANION GAP 9 (5-19); ASPARTATE AMINO TRANSFERASE 15 U/L (14-36); BILIRUBIN,DIRECT 0.2 mg/dL (0.0-0.4); BILIRUBIN,TOTAL 0.4 mg/dL (0.2-1.3); BLOOD UREA NITROGEN 12 mg/dL (7-20); CALCIUM 10.1 mg/dL (8.4-10.2); CARBON DIOXIDE 25 mmol/L (22-30); CHLORIDE 106 mmol/L (98-107); GLUCOSE 91 mg/dL (75-110); POTASSIUM 4.4 mmol/L (3.6-5.0); TOTAL PROTEIN 7.6 g/dL (6.3-8.2)
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
[2019-02-14 18:47] LABS: BACTERIA (WET MOUNT) 4+ BACTERIA SEEN; EPITHELIALS (WET MOUNT) 4+ EPITHELIALS SEEN; RBCS (WET MOUNT) NO RBCS SEEN; T.VAGINALIS (WET MOUNT) NO TRICHOMONAS SEEN; WBCS (WET MOUNT) FEW WBCS SEEN; YEAST (WET MOUNT) NO YEAST SEEN
[2019-02-14] MEDS ORDERED: AZITHROMYCIN 250 MG TABLET PO ONE (18:53)
[2019-02-14] MEDS ORDERED: CEFTRIAXONE INJ 250 MG VIAL IM ONE (18:53)
[2019-02-14] MEDS ORDERED: LIDOCAINE 1% INJ-PF (10 MG/ML) 30 ML SDV INJ ONE (18:53)
[2019-02-14 19:06] VITALS: BP 124/79
[2019-02-14 20:15] LABS: CHLAM PCR NOT DETECTED (NOT DETECT)
== END 2019-02-14 19:07 | disposition home or self-care (01) ==
LOC: ER 16:44
DX: N76.0 Acute vaginitis (principal); B96.89 Other specified bacterial agents as the cause of diseases classified elsewhere; R10.31 Right lower quadrant pain; K08.89 Other specified disorders of teeth and supporting structures; R10.2 Pelvic and perineal pain; H92.02 Otalgia, left ear; S30.0XXA Contusion of lower back and pelvis, initial encounter; W22.03XA Walked into furniture, initial encounter; K59.00 Constipation, unspecified; R19.5 Other fecal abnormalities; K64.4 Residual hemorrhoidal skin tags; I10 Essential (primary) hypertension
CPT/HCPCS: 99284; 96372; 36415; 87210; 85025; 81025; 80053; 81001; 87491; 87591; J3490; J0696

== ENCOUNTER 2019-05-01 02:36 | Emergency (ER) | payer BC ==
[2019-05-01] MEDS ORDERED: ONDANSETRON HCL INJ/PF 4 MG/2 ML SDV IV ONE (03:40)
[2019-05-01] MEDS ORDERED: NORMAL SALINE 1000 ML 1,000 ML IV ONE (03:43)
[2019-05-01 03:49] LABS: ABSOLUTE BASOPHILS # (AUTO) 0.1 10^3/uL (0.0-0.2); ABSOLUTE EOSINOPHILS # (AUTO) 0.2 10^3/uL (0.0-0.6); ABSOLUTE LYMPHOCYTES (AUTO) 3.1 10^3/uL (0.5-4.7); ABSOLUTE MONOCYTES (AUTO) 1.1 10^3/uL (0.1-1.4); ABSOLUTE NEUT (AUTO) 9.9 10^3/uL (1.7-8.2); BASOPHILS % (AUTO) 0.8 % (0-2); EOSINOPHILS % (AUTO) 1.2 % (0-6); HEMATOCRIT 35.3 % (36.0-47.0); HEMOGLOBIN 11.8 g/dL (12.0-15.5); LYMPHOCYTES % (AUTO) 21.6 % (13-45); MEAN CORPUSCULAR HEMOGLOBIN 29.9 pg (27.0-33.4); MEAN CORPUSCULAR HGB CONC 33.5 g/dL (32.0-36.0); MEAN CORPUSCULAR VOLUME 89 fl (80-97); MONOCYTES % (AUTO) 7.4 % (3-13); PLATELET COUNT 421 10^3/uL (150-450); RED BLOOD COUNT 3.95 10^6/uL (3.72-5.28); TOTAL CELLS COUNTED % (AUTO) 100 %; WHITE BLOOD COUNT 14.4 10^3/uL (4.0-10.5)
[2019-05-01 04:08] LABS: ALBUMIN 5.1 g/dL (3.5-5.0); ALKALINE PHOSPHATASE 71 U/L (38-126); ANION GAP 15 (5-19); ASPARTATE AMINO TRANSFERASE 20 U/L (14-36); BILIRUBIN,DIRECT 0.3 mg/dL (0.0-0.4); BILIRUBIN,TOTAL 0.7 mg/dL (0.2-1.3); BLOOD UREA NITROGEN 8 mg/dL (7-20); CALCIUM 10.4 mg/dL (8.4-10.2); CARBON DIOXIDE 23 mmol/L (22-30); CHLORIDE 100 mmol/L (98-107); GLUCOSE 109 mg/dL (75-110); POTASSIUM 3.6 mmol/L (3.6-5.0); TOTAL PROTEIN 9.3 g/dL (6.3-8.2)
[2019-05-01] MEDS ORDERED: OLANZAPINE INJ/PF 10 MG SDV IM ONE (04:30)
[2019-05-01] MEDS ORDERED: LORAZEPAM INJ 2 MG/1 ML VIAL IV ONE (04:35)
[2019-05-01] MEDS ORDERED: LORAZEPAM INJ 2 MG/1 ML VIAL ONE ×2 (04:35→04:47)
[2019-05-01] MEDS ORDERED: DIPHENHYDRAMINE HCL 50 MG/ML VIAL ONE (04:47)
[2019-05-01] MEDS ORDERED: HALOPERIDOL LACTATE INJ 5 MG/1 ML VIAL ONE (04:47)
[2019-05-01] MEDS ORDERED: LORAZEPAM INJ 2 MG/1 ML VIAL IM ONE (04:59)
[2019-05-01] MEDS ORDERED: DIPHENHYDRAMINE HCL 50 MG/ML VIAL IM ONE (04:59)
[2019-05-01] MEDS ORDERED: HALOPERIDOL LACTATE INJ 5 MG/1 ML VIAL IM ONE (04:59)
--- NOTE | 2019-05-01 05:00 | ER Document Report ---
ED General - General TRAVEL OUTSIDE OF THE [place] IN LAST 30 DAYS: No <CLAUS HITCHCOCK - Last Filed: 05/01/19 07:44> <BITA DUMONT Tammy - Last Filed: 05/01/19 19:48> - General Chief Complaint: Vomiting Stated Complaint: VOMITING,NAUSEA Time Seen by Provider: 05/01/19 03:39 Primary Care Provider: JANEY MCFARLANE MD [ACTIVE STAFF] - Follow up as needed Notes: RN NOTE: Pt presents with c/o vomiting and "not feeling like herself" that started this evening. Pt states she had a potluck at work today and feels like something she ate is causing her to be sick. pt states that she is not able to keep anything down, she immediately vomits it up. Pt alert and oriented, breathing e/u, NAD noted. Initialized on 05/01/19 02:50 - END OF NOTE MY HPI: Initial RN note as noted above. I have discussed with RN at bedside that the patient was conscious alert and oriented x4 upon arrival to the emergency department. She did voice she felt as though she may have been "roofied" at the potluck she was at earlier. Upon my assessment of the patient she knows her first name but will not say her last name. She intermittently laughs and then gets mad whenever I attempt to ask her questions. She does not know the date, she does not know where she is. Every question I asked her she says "you just said that." Patient does have a male friend in the room with her. This male states he is just her friend. States he does not know if she has any medical problems. Does not know if she took any medications this evening. States she woke him up because she was vomiting. He states she "was not acting right." This is when he presented to the emergency department with the patient. (CLAUS HITCHCOCK) - Related Data Allergies/Adverse Reactions: cinnamon [Cinnamon] Allergy (Verified 02/14/19 16:45) Penicillins Allergy (Verified 02/14/19 16:45) Past Medical History - General Information source: Friend - Social History Smoking Status: Unknown if Ever Smoked Family History: Arthritis, CAD - Mother [place], CVA, DM, Hyperlipidemia, Hypertension - Past Medical History Cardiac Medical History: Reports: Hx Hypertension - unmedicated Neurological Medical History: Reports: Hx Migraine Renal/ Medical History: Reports: Hx Ovarian Cysts. Denies: Hx Peritoneal Dialysis GI Medical History: Reports: Hx Crohn's Disease, Hx Gastroesophageal Reflux Disease, Hx Irritable Bowel, Hx Colonoscopy, Hx Endoscopy Musculoskeletal Medical History: Reports Hx Arthritis, Reports Hx Musculoskeletal Deformity, Reports Hx Musculoskeletal Trauma Psychiatric Medical History: Reports: Hx Anxiety, Hx Bipolar Disorder, Hx Depression, Hx Post Traumatic Stress Disorder Past Surgical History: Reports: Hx Gynecologic Surgery - ovarian cyst - Immunizations Immunizations up to date: Yes Hx Diphtheria, Pertussis, Tetanus Vaccination: Yes Hx Pneumococcal Vaccination: 03/15/14 <CLAUS HITCHCOCK - Last Filed: 05/01/19 07:44> Review of Systems - Review of Systems -: Yes ROS unobtainable due to patient's medical condition <CLAUS HITCHCOCK - Last Filed: 05/01/19 07:44> Physical Exam <CLAUS HITCHCOCK - Last Filed: 05/01/19 07:44> - Vital signs Vitals: Temp Pulse Resp BP Pulse Ox 97.4 F 142 H 16 178/98 H 100 05/01/19 02:42 05/01/19 02:42 05/01/19 02:42 05/01/19 02:42 05/01/19 02:42 - Notes Notes: GENERAL: Alert, initially appears unwilling to answer questions. HEAD: Normocephalic, atraumatic. EYES: Pupils equal, round, and reactive to light. Extraocular movements intact. ENT: Oral mucosa moist, tongue midline. NECK: Full range of motion. Supple. Trachea midline. LUNGS: Clear to auscultation bilaterally, no wheezes, rales, or rhonchi. No respiratory distress. HEART: Regular rate and rhythm. No murmur ABDOMEN: Soft, non-tender. Non-distended. Bowel sounds present in all 4 quadrants. EXTREMITIES: Moves all 4 extremities spontaneously. No edema, normal radial and dorsalis pedis pulses bilaterally. No cyanosis. BACK: no cervical, thoracic, lumbar midline tenderness. NEUROLOGICAL: Alert to her name, normal speech although disoriented. PSYCH: Normal affect, anxious mood. SKIN: Warm, dry, normal turgor. No rashes or lesions noted. (CLAUS HITCHCOCK) Course - Laboratory Result Diagrams: 05/01/19 03:36 05/01/19 03:36 <CLAUS HITCHCOCK - Last Filed: 05/01/19 07:44> - Laboratory Result Diagrams: 05/01/19 03:36 05/01/19 03:36 <DUMONTBITA R - Last Filed: 05/01/19 19:48> - Re-evaluation Re-evalutation: Initial forestry faculty member notes noted in HPI. Nurse that performed IV states she was cooperative with her. States she started to ask the same question over and over again which is been she came to speak with me. My assessment is as noted. I have ordered blood work as well as head CT at this time. 05/01/19 04:45 staffing operations manager stated the pt. ripped out her IV in CT. Then was screaming at staff. She was naked and becoming aggressive. Nursing staff has attempted to restrain the patient although IV Ativan was not administered as patient ripped out her IV. Patient was then given 50 mg of Benadryl, 5 mg of Haldol, 2 mg of Ativan IM. Nursing staff and security were able to get the patient restrained. She continues to yell and scream at staff. Patient is trying to get out of restraints. 05/01/19 07:44 Patient is currently sleeping, does moan to painful stimuli. This is likely due to the sedation medications that were administered. Laboratory 05/01/19 05/01/19 05/01/19 03:36 03:36 03:36 WBC 14.4 H RBC 3.95 Hgb 11.8 L Hct 35.3 L MCV 89 MCH 29.9 MCHC 33.5 RDW 14.0 Plt Count 421 Lymph % (Auto) 21.6 [place] % (Auto) 7.4 Eos % (Auto) 1.2 Baso % (Auto) 0.8 Absolute Neuts (auto) 9.9 H Absolute Lymphs (auto) 3.1 Absolute Monos (auto) 1.1 Absolute Eos (auto) 0.2 Absolute Basos (auto) 0.1 Seg Neutrophils % 69.0 Sodium 137.9 Potassium 3.6 Chloride 100 Carbon Dioxide 23 Anion Gap 15 BUN 8 Creatinine 0.83 Est GFR ( Amer) > 60 Est GFR (MDRD) Non-Af > 60 Glucose 109 Calcium 10.4 H Total Bilirubin 0.7 Direct Bilirubin 0.3 Neonat Total Bilirubin Not Reportable Neonat Direct Bilirubin Not Reportable Neonat Indirect Bili Not Reportable AST 20 ALT 12 Alkaline Phosphatase 71 Total Protein 9.3 H Albumin 5.1 H Lipase 66.5 Serum HCG, Qual NEGATIVE Urine Color Urine Appearance Urine pH Ur Specific [place] Urine Protein Urine Glucose (UA) Urine Ketones Urine Blood Urine Nitrite Urine Bilirubin Urine Urobilinogen Ur Leukocyte Esterase Urine WBC (Auto) Squamous Epi Cells Auto Urine Mucus (Auto) Urine Ascorbic Acid Salicylates Urine Opiates Screen Urine Methadone Screen Acetaminophen Ur Barbiturates Screen Ur Phencyclidine Scrn Ur Amphetamines Screen U Benzodiazepines Scrn Urine Cocaine Screen U Marijuana (THC) Screen Serum Alcohol 05/01/19 05/01/19 05/01/19 03:36 04:55 04:55 WBC RBC Hgb Hct MCV MCH MCHC RDW Plt Count Lymph % (Auto) [place] % (Auto) Eos % (Auto) Baso % (Auto) Absolute Neuts (auto) Absolute Lymphs (auto) Absolute Monos (auto) Absolute Eos (auto) Absolute Basos (auto) Seg Neutrophils % Sodium Potassium Chloride Carbon Dioxide Anion Gap BUN Creatinine Est GFR ( Amer) Est GFR (MDRD) Non-Af Glucose Calcium Total Bilirubin Direct Bilirubin Neonat Total Bilirubin Neonat Direct Bilirubin Neonat Indirect Bili AST ALT Alkaline Phosphatase Total Protein Albumin Lipase Serum HCG, Qual Urine Color STRAW Urine Appearance CLEAR Urine pH 6.0 Ur Specific [place] 1.004 Urine Protein NEGATIVE Urine Glucose (UA) NEGATIVE Urine Ketones NEGATIVE Urine Blood NEGATIVE Urine Nitrite NEGATIVE Urine Bilirubin NEGATIVE Urine Urobilinogen NEGATIVE Ur Leukocyte Esterase NEGATIVE Urine WBC (Auto) 0 Squamous Epi Cells Auto 6 Urine Mucus (Auto) RARE Urine Ascorbic Acid NEGATIVE Salicylates < 1.0 L Urine Opiates Screen NEGATIVE Urine Methadone Screen NEGATIVE Acetaminophen < 10 L Ur Barbiturates Screen NEGATIVE Ur Phencyclidine Scrn NEGATIVE Ur Amphetamines Screen NEGATIVE U Benzodiazepines Scrn NEGATIVE Urine Cocaine Screen NEGATIVE U Marijuana (THC) Screen UNCONFIRMED POSITIVE Serum Alcohol < [address] 05/01/19 04:00 IMPRESSION: No acute intracranial abnormality TECHNICAL DOCUMENTATION: Quality ID # 436: Final reports with documentation of one or more dose reduction techniques (e.g., Automated exposure control, adjustment of the mA and/or kV according to patient size, use of iterative reconstruction technique) copyright 2011 [employer]- All Rights Reserved Patient's labs are relatively unremarkable, slight leukocytosis noted. Patient's urine does come back positive for marijuana. Patient did present to the emergency department tachycardic and hypertensive. Pt. care and report given to Girma Dumont PA-C for continued care. (CLAUS HITCHCOCK) 05/01/19 09:47 Reassessed pt. Pt is still sleeping soundly. 05/01/19 15:21 Pt evaluated by psych. Cleared. Pt is alert and oriented x 4 and feeling better. Pt would like to go home. (BITA DUMONT) - Vital Signs Vital signs: Temp Pulse Resp BP Pulse Ox 98.6 F 86 16 110/72 100 05/01/19 15:05 05/01/19 15:05 05/01/19 15:05 05/01/19 15:05 05/01/19 15:05 - Laboratory Laboratory results interpreted by me: 05/01/19 05/01/19 05/01/19 03:36 03:36 03:36 WBC 14.4 H Hgb 11.8 L Hct 35.3 L Absolute Neuts (auto) 9.9 H Calcium 10.4 H Total Protein 9.3 H Albumin 5.1 H Salicylates < 1.0 L Acetaminophen < 10 L Discharge <CLAUS HITCHCOCK - Last Filed: 05/01/19 07:44> <BITA DUMONT - Last Filed: 05/01/19 19:48> - Discharge Clinical Impression: Nausea and vomiting Qualifiers: Vomiting type: unspecified Vomiting Intractability: unspecified Qualified Code(s): R11.2 - Nausea with vomiting, unspecified Altered mental status Qualifiers: Altered mental status type: unspecified Qualified Code(s): R41.82 - Altered mental status, unspecified Condition: Stable Disposition: HOME, SELF-CARE Additional Instructions: Please follow up with your primary care doctor in 3-5 days. Return to ER for any worsening symptoms, including fever, chills, abdominal pain, nausea/vomiting. Forms: Return to Work Referrals: JANEY MCFARLANE MD [ACTIVE STAFF] - Follow up as needed
[2019-05-01 05:02] LABS: ACETAMINOPHEN < 10 ug/mL (10-30); ALCOHOL < 10 mg/dL (NONE DETECTED); SALICYLATE < 1.0 mg/dL (2.0-20.0)
[2019-05-01 06:08] LABS: APPEARANCE,URINE CLEAR; BILIRUBIN,URINE NEGATIVE (NEGATIVE); COLOR,URINE STRAW; GLUCOSE, URINE NEGATIVE (NEGATIVE); KETONES,URINE NEGATIVE (NEGATIVE); LEUKOCYTE ESTERASE,URINE NEGATIVE (NEGATIVE); NITRITE,URINE NEGATIVE (NEGATIVE); PROTEIN,URINE NEGATIVE (NEGATIVE); URINE SPECIFIC GRAVITY 1.004; UROBILINOGEN,URINE NEGATIVE mg/dL (<2.0)
--- NOTE | 2019-05-01 06:13 | RADIOLOGY REPORT (SQ) ---
EXAM DESCRIPTION: CT HEAD WITHOUT IV CONTRAST COMPLETED DATE/TME: 05/01/2019 04:00 CLINICAL HISTORY: 34 years, Female, AMS COMPARISON: 05/23/2016 CT TECHNIQUE: 196 Images stored on PACS. All CT scanners at this facility use dose modulation, iterative reconstruction, and/or weight based dosing when appropriate to reduce radiation dose to as low as reasonably achievable (ALARA). [facility]: Dose Right [facility]: CareDose [facility]: Dose Right [facility]: Teradose 4D [facility]: [employer] LIMITATIONS: None. FINDINGS: The globes are intact. Mucosal thickening of the right maxillary sinus. No displaced or depressed skull fracture. No intra or extra-axial hemorrhage. CT is limited for evaluation of acute infarct. There is no CT evidence for large or territorial acute infarct. There is no mass. There is no midline shift IMPRESSION: No acute intracranial abnormality TECHNICAL DOCUMENTATION: Quality ID # 436: Final reports with documentation of one or more dose reduction techniques (e.g., Automated exposure control, adjustment of the mA and/or kV according to patient size, use of iterative reconstruction technique) copyright 2011 [employer]- All Rights Reserved
[2019-05-01 06:27] LABS: URINE AMPHETAMINES SCREEN NEGATIVE; URINE BARBITURATES SCREEN NEGATIVE; URINE BENZODIAZEPINES SCREEN NEGATIVE; URINE COCAINE SCREEN NEGATIVE; URINE METHADONE SCREEN NEGATIVE; URINE PHENCYCLIDINE SCREEN NEGATIVE
[2019-05-01 06:29] LABS: URINE MARIJUANA (THC) SCREEN UNCONFIRMED POSITIVE
--- NOTE | 2019-05-01 11:15 | EKG REPORT ---
SEVERITY:- OTHERWISE NORMAL ECG - SINUS TACHYCARDIA : Confirmed by: Sasha Hernandez MD 01-May-2019 11:14:18
[2019-05-01 15:34] VITALS: BP 110/72
== END 2019-05-01 15:35 | disposition home or self-care (01) ==
LOC: ER 02:36
DX: R41.82 Altered mental status, unspecified (principal); R11.2 Nausea with vomiting, unspecified; I10 Essential (primary) hypertension
CPT/HCPCS: 93005; 36415; 80307 ×4; 83690; 84703; 85025; 80053; 81001; 70450; 93010; J1200; J1630; J2060; 96372; 96374; 99285

== ENCOUNTER 2019-07-18 08:47 | Day surgery (SDC) | payer BC ==
[~2019-07-18 08:47] MED LIST: LIDOCAINE 2% INJ-PF (20 MG/ML) 10 ML AMPUL ONE; PROPOFOL INJ 200 MG/20 ML VIAL IV ONE
[2019-07-18] MEDS ORDERED: SIMETHICONE 80 MG TAB.CHEW ONE (11:20)
[2019-07-18 11:35] VITALS: BP 122/91
[2019-07-18] MEDS ORDERED: SIMETHICONE 80 MG TAB.CHEW PO ONE (11:47)
--- NOTE | 2019-07-18 13:57 | Operative Report ---
Operative Report DATE OF SURGERY: 07/18/19 Operative Report: The risk, benefits and alternatives of the procedure including the risk of bleeding, perforation requiring surgery have been explained to the patient in detail and informed consent has been obtained. Patient is taken back to the endoscopy suite and placed in a left, lateral decubital position. Timeout was called. Propofol medication is administered. Rectal examination is done which did not reveal any masses, tears or fissures. An Olympus videoscope was introduced into the patient's rectum. Scope was then carefully advanced all the way to the cecum. Cecum was identified by the usual anatomical landmarks including the ileocecal valve as well as the appendiceal office. Photodocumentation is obtained. Scope was then sequentially pulled back via the various segments of the colon including the ascending colon, back flexure, transverse colon, splenic flexure, descending colon finding to the rectosigmoid portions of the colon. Retroflexion maneuvers performed. The risks benefits and alternatives of the procedure explained to the patient in detail and informed consent is obtained. GIF Olympus video scope was inserted into the patient's mouth and hypopharynx, the esophagus is identified intubated and insufflated, the scope was then advanced through the esophagus stomach and duodenum, retroflexion maneuver is done, the esophagus stomach and first and second portions of the duodenum examined PREOPERATIVE DIAGNOSIS: Blood in stools, gastroesophageal reflux disease POSTOPERATIVE DIAGNOSIS: Intubation of the terminal ileum performed with bowel terminal ileitis status post biopsy. Anal fissure. Internal hemorrhoids. Gastritis status post biopsy. Esophagitis noted. Small hiatal hernia OPERATION: Colonoscopy with biopsy. EGD with biopsy SURGEON: ASHWINI BRAND ANESTHESIA: LMAC TISSUE REMOVED OR ALTERED: As noted above. COMPLICATIONS: None. ESTIMATED BLOOD LOSS: None. INTRAOPERATIVE FINDINGS: As noted above. PROCEDURE: Patient tolerated the procedure well. No immediate postprocedure complications are noted. Patient is discharged in good condition. Discharge date 07/18/2019. Discharge diet: Regular. Discharge activity: Regular. 2 to 3-week follow-up to discuss findings. Patient is instructed to call the office or proceed to the emergency room should there be any further problems or questions. Wait on the pathology.
== END 2019-07-18 11:45 | disposition home or self-care (01) ==
LOC: END 08:47
PROVIDERS: ATTEND Internal Medicine Gastroenterology
DX: K29.50 Unspecified chronic gastritis without bleeding (principal); K64.8 Other hemorrhoids; K44.9 Diaphragmatic hernia without obstruction or gangrene; K21.0 Gastro-esophageal reflux disease with esophagitis; K58.9 Irritable bowel syndrome, unspecified; K92.1 Melena; Z87.891 Personal history of nicotine dependence; Z79.899 Other long term (current) drug therapy
CPT/HCPCS: 43239; 45380; 88305 ×2; J2704; J3490

== ENCOUNTER 2019-07-28 08:48 | Emergency (ER) | payer BC ==
--- NOTE | 2019-07-28 09:43 | ER Document Report ---
ED Medical Screen (RME) - General Chief Complaint: Bloody Stools Stated Complaint: BLOOD IN STOOL,LIGHTHEADED Time Seen by Provider: 07/28/19 09:37 TRAVEL OUTSIDE OF THE [place] IN LAST 30 DAYS: No - HPI Notes: 07/28/19 09:42 Patient is a 34-year-old female presents complaining of having red blood in her stool for "a little while." Patient states that she had a scope done this past week with Dr. Cisneros which was unremarkable. Patient states that she continues to have symptoms and presents here for evaluation. She has felt somewhat lightheaded recently as well. She has had a dry cough for the past week. She is able to eat and drink without difficulty. She is urinating normally and having normal bowel movements otherwise. No fever, diarrhea, abdominal pain, vomiting, dysuria. I have treated and performed a rapid initial assessment of this patient. A comprehensive ED assessment and evaluation of the patient, analysis of test results and completion of medical decision making process will be conducted by additional ED providers. PHYSICAL EXAMINATION: GENERAL: Well-appearing, well-nourished and in no acute distress. A&Ox4. Answers questions appropriately. - Related Data Allergies/Adverse Reactions: cinnamon [Cinnamon] Allergy (Severe, Verified 07/15/19 11:51) MAKES ME SICK Penicillins Allergy (Unknown, Verified 07/15/19 11:51) Past Medical History - Past Medical History Cardiac Medical History: Denies: Hx Coronary Artery Disease, Hx Heart Attack, Hx Hypertension Pulmonary Medical History: Denies: Hx Asthma, Hx Bronchitis, Hx COPD, Hx Pneumonia Neurological Medical History: Reports: Hx Migraine. Denies: Hx Cerebrovascular Accident, Hx Seizures Renal/ Medical History: Reports: Hx Ovarian Cysts. Denies: Hx Peritoneal Dialysis GI Medical History: Reports: Hx Crohn's Disease, Hx Gastroesophageal Reflux Disease, Hx Irritable Bowel, Hx Colonoscopy, Hx Endoscopy Musculoskeltal Medical History: Denies Hx Arthritis, Reports Hx Musculoskeletal Deformity, Reports Hx Musculoskeletal Trauma Psychiatric Medical History: Reports: Hx Anxiety, Hx Bipolar Disorder, Hx Depression, Hx Post Traumatic Stress Disorder Past Surgical History: Reports: Hx Gynecologic Surgery - ovarian cyst - Immunizations Immunizations up to date: Yes Hx Diphtheria, Pertussis, Tetanus Vaccination: Yes Physical Exam - Vital signs Vitals: Temp Pulse Resp BP Pulse Ox 98.7 F 86 16 127/77 H 97 07/28/19 08:52 07/28/19 08:52 07/28/19 08:52 07/28/19 08:52 07/28/19 08:52 Course - Vital Signs Vital signs: Temp Pulse Resp BP Pulse Ox 98.7 F 86 16 127/77 H 97 07/28/19 08:52 07/28/19 08:52 07/28/19 08:52 07/28/19 08:52 07/28/19 08:52
[2019-07-28 10:19] LABS: ABSOLUTE BASOPHILS # (AUTO) 0.1 10^3/uL (0.0-0.2); ABSOLUTE EOSINOPHILS # (AUTO) 0.2 10^3/uL (0.0-0.6); ABSOLUTE LYMPHOCYTES (AUTO) 2.1 10^3/uL (0.5-4.7); ABSOLUTE MONOCYTES (AUTO) 0.9 10^3/uL (0.1-1.4); ABSOLUTE NEUT (AUTO) 7.9 10^3/uL (1.7-8.2); BASOPHILS % (AUTO) 0.7 % (0-2); EOSINOPHILS % (AUTO) 1.9 % (0-6); HEMATOCRIT 35.9 % (36.0-47.0); HEMOGLOBIN 12.2 g/dL (12.0-15.5); LYMPHOCYTES % (AUTO) 18.5 % (13-45); MEAN CORPUSCULAR HEMOGLOBIN 29.9 pg (27.0-33.4); MEAN CORPUSCULAR HGB CONC 33.9 g/dL (32.0-36.0); MEAN CORPUSCULAR VOLUME 88 fl (80-97); MONOCYTES % (AUTO) 7.9 % (3-13); PLATELET COUNT 386 10^3/uL (150-450); RED BLOOD COUNT 4.07 10^6/uL (3.72-5.28); RED CELL DISTRIBUTION WIDTH 13.4 % (11.5-14.0); TOTAL CELLS COUNTED % (AUTO) 100 %; WHITE BLOOD COUNT 11.1 10^3/uL (4.0-10.5)
--- NOTE | 2019-07-28 10:24 | RADIOLOGY REPORT (SQ) ---
EXAM DESCRIPTION: CHEST 2 VIEWS COMPLETED DATE/TIME: 07/28/2019 10:15 am REASON FOR STUDY: cough COMPARISON: 07/31/2018. EXAM PARAMETERS: NUMBER OF VIEWS: two views TECHNIQUE: Digital Frontal and Lateral radiographic views of the chest acquired. RADIATION DOSE: NA LIMITATIONS: none FINDINGS: LUNGS AND PLEURA: No opacities, masses or pneumothorax. No pleural effusion. MEDIASTINUM AND HILAR STRUCTURES: No masses or contour abnormalities. HEART AND VASCULAR STRUCTURES: Heart normal size. No evidence for failure. BONES: No acute findings. HARDWARE: None in the chest. OTHER: No other significant finding. IMPRESSION: NO ACUTE RADIOGRAPHIC FINDING IN THE CHEST. TECHNICAL DOCUMENTATION: JOB ID: [id number] 2010 [employer]- All Rights Reserved Reading location - IP/workstation name: [email or web address]
[2019-07-28 10:36] LABS: APPEARANCE,URINE CLOUDY; BILIRUBIN,URINE NEGATIVE (NEGATIVE); COLOR,URINE YELLOW; GLUCOSE, URINE NEGATIVE (NEGATIVE); KETONES,URINE NEGATIVE (NEGATIVE); PROTEIN,URINE NEGATIVE (NEGATIVE); URINE SPECIFIC GRAVITY 1.011; UROBILINOGEN,URINE NEGATIVE mg/dL (<2.0)
[2019-07-28 10:53] LABS: ALBUMIN 4.3 g/dL (3.5-5.0); ALKALINE PHOSPHATASE 65 U/L (38-126); ANION GAP 10 (5-19); ASPARTATE AMINO TRANSFERASE 21 U/L (14-36); BILIRUBIN,DIRECT 0.2 mg/dL (0.0-0.4); BILIRUBIN,TOTAL 0.7 mg/dL (0.2-1.3); BLOOD UREA NITROGEN 13 mg/dL (7-20); CARBON DIOXIDE 24 mmol/L (22-30); CHLORIDE 105 mmol/L (98-107); GLUCOSE 86 mg/dL (75-110); POTASSIUM 4.3 mmol/L (3.6-5.0); TOTAL PROTEIN 8.2 g/dL (6.3-8.2)
[2019-07-28] MEDS ORDERED: NORMAL SALINE 1000 ML 1,000 ML IV ONE (13:36)
[2019-07-28] MEDS ORDERED: PSEUDOEPHEDRINE HCL 30 MG TABLET PO ONE (13:37)
[2019-07-28] MEDS ORDERED: ONDANSETRON HCL INJ/PF 4 MG/2 ML SDV IV ONE (13:37)
[2019-07-28] MEDS ORDERED: MECLIZINE HCL 25 MG TABLET PO ONE (13:37)
--- NOTE | 2019-07-28 13:39 | ER Document Report ---
ED General - General Chief Complaint: Bloody Stools Stated Complaint: BLOOD IN STOOL,LIGHTHEADED Time Seen by Provider: 07/28/19 13:27 Primary Care Provider: ASHWINI BRAND MD [ACTIVE STAFF] - Follow up in 3-5 days RAYO JOHNSON MD [Primary Care Provider] - Follow up as needed Mode of Arrival: Ambulatory Information source: Patient Notes: Patient states that she has had blood in her stool since April. Patient reports feeling lightheaded today. Patient states she has had a dry cough for the past week. Patient reports nausea but denies any vomiting or diarrhea. Patient denies any fever or abdominal tenderness. Patient does complain of congestion for the past week. Patient had an EGD and colonoscopy performed just over a week ago. Patient is uncertain what the results of her colonoscopy were. TRAVEL OUTSIDE OF THE [place] IN LAST 30 DAYS: No - HPI Onset: Other - Blood in stool x4 months Onset/Duration: Persistent Quality of pain: No pain Pain Level: Denies Associated symptoms: Nonproductive cough, Nausea. denies: Diarrhea, Fever, Vomiting, Shortness of breath Exacerbated by: Denies Relieved by: Denies Similar symptoms previously: Yes Recently seen / treated by doctor: Yes - Related Data Allergies/Adverse Reactions: cinnamon [Cinnamon] Allergy (Severe, Verified 07/28/19 09:43) MAKES ME SICK Penicillins Allergy (Unknown, Verified 07/28/19 09:43) Past Medical History - General Information source: Patient - Social History Smoking Status: Never Smoker Frequency of alcohol use: None Drug Abuse: None Family History: Arthritis, CAD - Mother [place], CVA, DM, Hyperlipidemia, Hypertension Patient has suicidal ideation: No Patient has homicidal ideation: No Neurological Medical History: Reports: Hx Migraine Renal/ Medical History: Reports: Hx Ovarian Cysts. Denies: Hx Peritoneal Dialysis GI Medical History: Reports: Hx Crohn's Disease, Hx Gastroesophageal Reflux Disease, Hx Irritable Bowel, Hx Colonoscopy, Hx Endoscopy Musculoskeletal Medical History: Denies Hx Arthritis, Reports Hx Musculoskeletal Deformity, Reports Hx Musculoskeletal Trauma Psychiatric Medical History: Reports: Hx Anxiety, Hx Bipolar Disorder, Hx Depression, Hx Post Traumatic Stress Disorder Past Surgical History: Reports: Hx Gynecologic Surgery - ovarian cyst - Immunizations Immunizations up to date: Yes Hx Diphtheria, Pertussis, Tetanus Vaccination: Yes Hx Pneumococcal Vaccination: 03/15/14 Review of Systems - Review of Systems Constitutional: No symptoms reported. denies: Fever, Recent illness EENT: Nose congestion, Sinus pressure. denies: Throat pain Cardiovascular: Dizziness, Lightheaded. denies: Chest pain Respiratory: Cough. denies: Short of breath Gastrointestinal: Nausea, Rectal bleeding. denies: Abdominal pain, Diarrhea, Vomiting Genitourinary: No symptoms reported Female Genitourinary: Vaginal discharge Musculoskeletal: No symptoms reported. denies: Back pain Skin: No symptoms reported Hematologic/Lymphatic: No symptoms reported Neurological/Psychological: No symptoms reported Physical Exam - Vital signs Vitals: Temp Pulse Resp BP Pulse Ox 98.7 F 86 16 127/77 H 97 07/28/19 08:52 07/28/19 08:52 07/28/19 08:52 07/28/19 08:52 07/28/19 08:52 - General General appearance: Appears well, Alert In distress: None - HEENT Head: Normocephalic, Atraumatic Eyes: Normal Conjunctiva: Normal Ears: Normal External canal: Normal Tympanic membrane: Serous effusion Nasal: Swelling, Clear rhinorrhea Mouth/Lips: Normal Mucous membranes: Normal Pharynx: Normal. No: Erythema Neck: Normal, Supple. No: Lymphadenopathy - Respiratory Respiratory status: No respiratory distress Chest status: Nontender Breath sounds: Normal. No: Rales, Rhonchi, Stridor, Wheezing Chest palpation: Normal - Cardiovascular Rhythm: Regular Heart sounds: S1 appreciated, S2 appreciated Murmur: No - Abdominal Inspection: Normal Distension: No distension Bowel sounds: Normal Tenderness: Nontender Organomegaly: No organomegaly - Rectal Tenderness: No - Genitourinary External exam: Normal Speculum exam: Cervix closed, Vaginal discharge Vaginal bleeding: None Bimanuel exam: Normal. No: Cervical motion tender, Bladder/Urethral tender, Adnexal mass, Adnexal tenderness - Back Back: Normal, Nontender. No: CVA tenderness - Extremities General upper extremity: Normal inspection, Normal strength General lower extremity: Normal inspection, Normal strength - Neurological Neuro grossly intact: Yes Cognition: Normal Ephraim Coma Scale Eye Opening: Spontaneous [place]im Coma Scale Verbal: Oriented [place] Coma Scale Motor: Obeys Commands Ephraim Coma Scale Total: 15 - Psychological Associated symptoms: Anxious - Skin Skin Temperature: Warm Skin Moisture: Dry Skin Color: Normal Course - Re-evaluation Re-evalutation: 07/28/19 14:50 Contacted turntable operator for consultation with patient's GI specialist Dr. Brand, message left for return call. 07/28/19 16:[address] Brand regarding patient presentation and concern about continued reports of blood in stool. Dr. Castillo states that patient did have internal hemorrhoids and an anal fissure. States that patient was also seen 5 days ago and placed on antibiotics to treat a sinus infection. Of note, patient did not mention that she had already previously been treated for a sinus infection. 07/28/19 16:26 Patient with sinus congestion symptoms and a history of blood in the stool. Patient does have known history of fissure as well as internal hemorrhoids. Patient also has recently been placed on antibiotics to treat a sinusitis. Patient encouraged to finish her medicine as well as to use Sudafed and Mucinex [id number] to help with congestion symptoms. Will treat for bacterial vaginosis at this time and encourage outpatient follow-up with her senior quality assurance engineer. Pt hemodynamically stable with stable vital signs at this time. - Vital Signs Vital signs: Temp Pulse Resp BP Pulse Ox 98.2 F 74 16 122/84 100 07/28/19 17:29 07/28/19 17:29 07/28/19 17:29 07/28/19 17:29 07/28/19 17:29 - Laboratory Result Diagrams: 07/28/19 09:50 07/28/19 09:50 Laboratory results interpreted by me: 07/28/19 07/28/19 09:50 09:50 WBC 11.1 H Hct 35.9 L Leukocyte Esterase Rfl TRACE H 07/28/19 16:22 Labs- Entire Visit 07/28/19 07/28/19 07/28/19 09:50 09:50 09:50 WBC 11.1 H RBC 4.07 Hgb 12.2 Hct 35.9 L MCV 88 MCH 29.9 MCHC 33.9 RDW 13.4 Plt Count 386 Lymph % (Auto) 18.5 [place] % (Auto) 7.9 Eos % (Auto) 1.9 Baso % (Auto) 0.7 Absolute Neuts (auto) 7.9 Absolute Lymphs (auto) 2.1 Absolute Monos (auto) 0.9 Absolute Eos (auto) 0.2 Absolute Basos (auto) 0.1 Seg Neutrophils % 71.0 Sodium 138.5 Potassium 4.3 Chloride 105 Carbon Dioxide 24 Anion Gap 10 BUN 13 Creatinine 0.85 Est GFR ( Amer) > 60 Est GFR (MDRD) Non-Af > 60 Glucose 86 Calcium 10.0 Total Bilirubin 0.7 Direct Bilirubin 0.2 Neonat Total Bilirubin Not Reportable Neonat Direct Bilirubin Not Reportable Neonat Indirect Bili Not Reportable AST 21 ALT 11 Alkaline Phosphatase 65 Total Protein 8.2 Albumin 4.3 Urine Color YELLOW Urine Appearance CLOUDY Urine pH 7.0 Ur Specific [place] 1.011 Urine Protein NEGATIVE Urine Glucose (UA) NEGATIVE Urine Ketones NEGATIVE Urine Blood NEGATIVE Urine Nitrite (Reflex) NEGATIVE Urine Bilirubin NEGATIVE Urine Urobilinogen NEGATIVE Leukocyte Esterase Rfl TRACE H Urine RBC (Auto) 1 Urine WBC (Reflex) 2 Squamous Epi Cells Auto 62 Urine Mucus (Auto) RARE Urine Ascorbic Acid NEGATIVE Urine HCG, Qual NEGATIVE Epi Cells (Wet Prep) Bacteria (Wet Prep) Trichomonas (Wet Prep) Vaginal WBC Vaginal RBC Vaginal Yeast 07/28/19 14:44 WBC RBC Hgb Hct MCV MCH MCHC RDW Plt Count Lymph % (Auto) [place] % (Auto) Eos % (Auto) Baso % (Auto) Absolute Neuts (auto) Absolute Lymphs (auto) Absolute Monos (auto) Absolute Eos (auto) Absolute Basos (auto) Seg Neutrophils % Sodium Potassium Chloride Carbon Dioxide Anion Gap BUN Creatinine Est GFR ( Amer) Est GFR (MDRD) Non-Af Glucose Calcium Total Bilirubin Direct Bilirubin Neonat Total Bilirubin Neonat Direct Bilirubin Neonat Indirect Bili AST ALT Alkaline Phosphatase Total Protein Albumin Urine Color Urine Appearance Urine pH Ur Specific [place] Urine Protein Urine Glucose (UA) Urine Ketones Urine Blood Urine Nitrite (Reflex) Urine Bilirubin Urine Urobilinogen Leukocyte Esterase Rfl Urine RBC (Auto) Urine WBC (Reflex) Squamous Epi Cells Auto Urine Mucus (Auto) Urine Ascorbic Acid Urine HCG, Qual Epi Cells (Wet Prep) 4+ EPITHELIALS SEEN Bacteria (Wet Prep) 3+ BACTERIA SEEN Trichomonas (Wet Prep) NO TRICHOMONAS SEEN Vaginal WBC FEW WBCS SEEN Vaginal RBC NO RBCS SEEN Vaginal Yeast NO YEAST SEEN 07/28/19 16:26 Labs- Entire Visit 07/28/19 07/28/19 07/28/19 09:50 09:50 09:50 WBC 11.1 H RBC 4.07 Hgb 12.2 Hct 35.9 L MCV 88 MCH 29.9 MCHC 33.9 RDW 13.4 Plt Count 386 Lymph % (Auto) 18.5 [place] % (Auto) 7.9 Eos % (Auto) 1.9 Baso % (Auto) 0.7 Absolute Neuts (auto) 7.9 Absolute Lymphs (auto) 2.1 Absolute Monos (auto) 0.9 Absolute Eos (auto) 0.2 Absolute Basos (auto) 0.1 Seg Neutrophils % 71.0 Sodium 138.5 Potassium 4.3 Chloride 105 Carbon Dioxide 24 Anion Gap 10 BUN 13 Creatinine 0.85 Est GFR ( Amer) > 60 Est GFR (MDRD) Non-Af > 60 Glucose 86 Calcium 10.0 Total Bilirubin 0.7 Direct Bilirubin 0.2 Neonat Total Bilirubin Not Reportable Neonat Direct Bilirubin Not Reportable Neonat Indirect Bili Not Reportable AST 21 ALT 11 Alkaline Phosphatase 65 Total Protein 8.2 Albumin 4.3 Urine Color YELLOW Urine Appearance CLOUDY Urine pH 7.0 Ur Specific [place] 1.011 Urine Protein NEGATIVE Urine Glucose (UA) NEGATIVE Urine Ketones NEGATIVE Urine Blood NEGATIVE Urine Nitrite (Reflex) NEGATIVE Urine Bilirubin NEGATIVE Urine Urobilinogen NEGATIVE Leukocyte Esterase Rfl TRACE H Urine RBC (Auto) 1 Urine WBC (Reflex) 2 Squamous Epi Cells Auto 62 Urine Mucus (Auto) RARE Urine Ascorbic Acid NEGATIVE Urine HCG, Qual NEGATIVE Epi Cells (Wet Prep) Bacteria (Wet Prep) Trichomonas (Wet Prep) Vaginal WBC Vaginal RBC Vaginal Yeast 07/28/19 14:44 WBC RBC Hgb Hct MCV MCH MCHC RDW Plt Count Lymph % (Auto) [place] % (Auto) Eos % (Auto) Baso % (Auto) Absolute Neuts (auto) Absolute Lymphs (auto) Absolute Monos (auto) Absolute Eos (auto) Absolute Basos (auto) Seg Neutrophils % Sodium Potassium Chloride Carbon Dioxide Anion Gap BUN Creatinine Est GFR ( Amer) Est GFR (MDRD) Non-Af Glucose Calcium Total Bilirubin Direct Bilirubin Neonat Total Bilirubin Neonat Direct Bilirubin Neonat Indirect Bili AST ALT Alkaline Phosphatase Total Protein Albumin Urine Color Urine Appearance Urine pH Ur Specific [place] Urine Protein Urine Glucose (UA) Urine Ketones Urine Blood Urine Nitrite (Reflex) Urine Bilirubin Urine Urobilinogen Leukocyte Esterase Rfl Urine RBC (Auto) Urine WBC (Reflex) Squamous Epi Cells Auto Urine Mucus (Auto) Urine Ascorbic Acid Urine HCG, Qual Epi Cells (Wet Prep) 4+ EPITHELIALS SEEN Bacteria (Wet Prep) 3+ BACTERIA SEEN Trichomonas (Wet Prep) NO TRICHOMONAS SEEN Vaginal WBC FEW WBCS SEEN Vaginal RBC NO RBCS SEEN Vaginal Yeast NO YEAST SEEN - Diagnostic Test Radiology reviewed: Reports reviewed - EKG Interpretation by Me EKG shows normal: Sinus rhythm Rate: Normal Rhythm: NSR Additional EKG results interpreted by me: 07/28/19 16:23 qtc 445, no ST elevation Discharge - Discharge Clinical Impression: Vaginal discharge, Sinus congestion, Anal fissure, Internal hemorrhoids Condition: Stable Disposition: HOME, SELF-CARE Instructions: Azithromycin ([facility]), Hemorrhoids ([facility]), Metronidazole ([facility]), Rocephin ([facility]), Sinusitis ([facility]), Vaginosis, Bacterial ([facility]) Additional Instructions: Return immediately for any new or worsening symptoms Followup with your primary care provider, call tomorrow to make a followup appointment Follow-up with your senior quality assurance engineer for recheck Prescriptions: Metronidazole [Flagyl 500 mg Tablet] 500 mg PO BID #14 tablet Ondansetron [Zofran Odt 4 mg Tablet] 1 tab PO Q6H PRN #10 tab.rapdis PRN Reason: Forms: Return to School Referrals: RAYO JOHNSON MD [Primary Care Provider] - Follow up as needed ASHWINI BRAND MD [ACTIVE STAFF] - Follow up in 3-5 days
[2019-07-28 15:35] LABS: BACTERIA (WET MOUNT) 3+ BACTERIA SEEN; EPITHELIALS (WET MOUNT) 4+ EPITHELIALS SEEN; RBCS (WET MOUNT) NO RBCS SEEN; T.VAGINALIS (WET MOUNT) NO TRICHOMONAS SEEN; WBCS (WET MOUNT) FEW WBCS SEEN; YEAST (WET MOUNT) NO YEAST SEEN
[2019-07-28] MEDS ORDERED: AZITHROMYCIN 250 MG TABLET PO ONE (16:24)
[2019-07-28] MEDS ORDERED: CEFTRIAXONE INJ 250 MG VIAL IV ONE (16:24)
[2019-07-28 17:08] LABS: CHLAM PCR NOT DETECTED (NOT DETECT)
[2019-07-28 17:30] VITALS: BP 122/84
--- NOTE | 2019-07-28 23:30 | EKG REPORT ---
SEVERITY:- NORMAL ECG - SINUS RHYTHM : Confirmed by: Reza Ching MD 28-Jul-2019 23:29:34
== END 2019-07-28 17:33 | disposition home or self-care (01) ==
LOC: ER 08:48
DX: N76.0 Acute vaginitis (principal); B97.89 Other viral agents as the cause of diseases classified elsewhere; K60.2 Anal fissure, unspecified; K64.8 Other hemorrhoids; J32.9 Chronic sinusitis, unspecified; R09.81 Nasal congestion; K62.5 Hemorrhage of anus and rectum; R05 Cough; R42 Dizziness and giddiness; J34.89 Other specified disorders of nose and nasal sinuses; R11.0 Nausea; Z91.018 Allergy to other foods; Z88.0 Allergy status to penicillin
CPT/HCPCS: 93005; 36415; 87210; 85025; 81025; 80053; 81001; 87491; 87591; 71046; 93010; J2405; J7030; J0696

== ENCOUNTER 2019-10-30 00:25 | Emergency (ER) | payer BC ==
[2019-10-30 02:27] LABS: ABSOLUTE BASOPHILS # (AUTO) 0.1 10^3/uL (0.0-0.2); ABSOLUTE EOSINOPHILS # (AUTO) 0.1 10^3/uL (0.0-0.6); ABSOLUTE LYMPHOCYTES (AUTO) 2.1 10^3/uL (0.5-4.7); ABSOLUTE NEUT (AUTO) 9.2 10^3/uL (1.7-8.2); EOSINOPHILS % (AUTO) 1.2 % (0-6); HEMATOCRIT 36.3 % (36.0-47.0); HEMOGLOBIN 12.2 g/dL (12.0-15.5); LYMPHOCYTES % (AUTO) 16.6 % (13-45); MEAN CORPUSCULAR HEMOGLOBIN 29.8 pg (27.0-33.4); MEAN CORPUSCULAR HGB CONC 33.6 g/dL (32.0-36.0); MEAN CORPUSCULAR VOLUME 89 fl (80-97); MONOCYTES % (AUTO) 7.9 % (3-13); PLATELET COUNT 351 10^3/uL (150-450); RED BLOOD COUNT 4.09 10^6/uL (3.72-5.28); RED CELL DISTRIBUTION WIDTH 14.2 % (11.5-14.0); SEGMENTED NEUTROPHILS % (AUTO) 73.3 % (42-78); TOTAL CELLS COUNTED % (AUTO) 100 %; WHITE BLOOD COUNT 12.5 10^3/uL (4.0-10.5)
[2019-10-30] MEDS ORDERED: NORMAL SALINE 1000 ML 1,000 ML IV ONE (02:36)
[2019-10-30] MEDS ORDERED: METOCLOPRAMIDE HCL INJ/PF 10 MG/2 ML SDV IV ONE (02:44)
[2019-10-30 03:01] LABS: ALBUMIN 4.4 g/dL (3.5-5.0); ALKALINE PHOSPHATASE 82 U/L (38-126); ANION GAP 8 (5-19); ASPARTATE AMINO TRANSFERASE 19 U/L (14-36); BILIRUBIN,TOTAL 0.4 mg/dL (0.2-1.3); BLOOD UREA NITROGEN 7 mg/dL (7-20); CALCIUM 10.2 mg/dL (8.4-10.2); CARBON DIOXIDE 24 mmol/L (22-30); CHLORIDE 103 mmol/L (98-107); GLUCOSE 109 mg/dL (75-110); POTASSIUM 4.4 mmol/L (3.6-5.0); TOTAL PROTEIN 8.1 g/dL (6.3-8.2)
[2019-10-30 03:33] LABS: APPEARANCE,URINE CLEAR; BILIRUBIN,URINE NEGATIVE (NEGATIVE); COLOR,URINE STRAW; GLUCOSE, URINE NEGATIVE (NEGATIVE); KETONES,URINE NEGATIVE (NEGATIVE); LEUKOCYTE ESTERASE,URINE NEGATIVE (NEGATIVE); NITRITE,URINE NEGATIVE (NEGATIVE); PROTEIN,URINE NEGATIVE (NEGATIVE); URINE SPECIFIC GRAVITY 1.006; UROBILINOGEN,URINE NEGATIVE mg/dL (<2.0)
--- NOTE | 2019-10-30 03:44 | ER Document Report ---
Entered by ADELA BEAVER SCRIBE 10/30/19 0221 Acting as scribe for:GIGI CHENG IV, MD ED GI/ - General Chief Complaint: Abdominal Pain Stated Complaint: ABDOMINAL PAIN Time Seen by Provider: 10/30/19 01:54 Primary Care Provider: RAYO JOHNSON MD [Primary Care Provider] - Follow up as needed Mode of Arrival: Ambulatory Information source: Patient Notes: This 34 year old female patient presents to the ED today with complaints of l ower abdominal pain/cramping that started around 2300 last night after eating pineapples. Patient states that the cramping "felt like contractions." She also reports that she has had diarrhea for the past x2 days with some bloody stools after eating pizza and wings. She also states that she has a sinus infection and bronchitis, reporting maxillary sinus pressure, sputum production, and ear discharge. She admits that she quit smoking x1 month ago. TRAVEL OUTSIDE OF THE [place] IN LAST 30 DAYS: No - Related Data Allergies/Adverse Reactions: cinnamon [Cinnamon] Allergy (Severe, Verified 07/28/19 09:43) MAKES ME SICK Penicillins Allergy (Unknown, Verified 07/28/19 09:43) Past Medical History - Social History Smoking Status: Never Smoker Cigarette use (# per day): No Chew tobacco use (# tins/day): No Smoking Education Provided: No Frequency of alcohol use: Occasional Drug Abuse: Marijuana Family History: Arthritis, CAD - Mother [place], CVA, DM, Hyperlipidemia, Hypertension Patient has suicidal ideation: No Patient has homicidal ideation: No Neurological Medical History: Reports: Hx Migraine Renal/ Medical History: Reports: Hx Ovarian Cysts GI Medical History: Reports: Hx Crohn's Disease, Hx Gastroesophageal Reflux Disease, Hx Irritable Bowel, Hx Colonoscopy, Hx Endoscopy Musculoskeletal Medical History: Reports Hx Musculoskeletal Deformity, Reports Hx Musculoskeletal Trauma Psychiatric Medical History: Reports: Hx Anxiety, Hx Bipolar Disorder, Hx Depression, Hx Post Traumatic Stress Disorder Past Surgical History: Reports: Hx Gynecologic Surgery - ovarian cyst - Immunizations Immunizations up to date: Yes Hx Diphtheria, Pertussis, Tetanus Vaccination: Yes Hx Pneumococcal Vaccination: 03/15/14 Review of Systems - Review of Systems Constitutional: No symptoms reported EENT: See HPI, Ear discharge, Sinus pressure Cardiovascular: No symptoms reported Respiratory: See HPI, Sputum Gastrointestinal: See HPI, Abdominal pain, Diarrhea, Blood streaked bowels. denies: Nausea, Vomiting Genitourinary: No symptoms reported Female Genitourinary: No symptoms reported Musculoskeletal: No symptoms reported Skin: No symptoms reported Hematologic/Lymphatic: No symptoms reported Neurological/Psychological: No symptoms reported -: Yes All other systems reviewed and negative Physical Exam - Vital signs Vitals: Temp Pulse Resp BP Pulse Ox 98.8 F 109 H 14 147/102 H 99 10/30/19 00:29 10/30/19 00:29 10/30/19 00:29 10/30/19 00:29 10/30/19 00:29 - General General appearance: Alert In distress: None - HEENT Head: Normocephalic, Atraumatic Eyes: Normal Pupils: PERRL Tympanic membrane: Other - Clear fluid behind TMs bilaterally Sinus: Maxillary - Tenderness to percussion to maxillary sinuses bilaterally - Respiratory Respiratory status: No respiratory distress Chest status: Nontender Breath sounds: Normal Chest palpation: Normal - Cardiovascular Rhythm: Regular Heart sounds: Normal auscultation Murmur: No Friction rub: No Gallop: None auscultated - Abdominal Inspection: Normal Distension: No distension Bowel sounds: Normal Tenderness: Nontender - Abdomen soft Organomegaly: No organomegaly - Back Back: Normal, Nontender - Extremities General upper extremity: Normal inspection General lower extremity: Normal inspection - Neurological Neuro grossly intact: Yes Orientation: AAOx4 - Psychological Associated symptoms: Normal affect, Normal mood - Skin Skin Temperature: Warm Skin Moisture: Dry Skin Color: Normal Course - Re-evaluation Re-evalutation: 10/30/19 03:54 Results of ED MSE discussed with patient. All questions were answered prior to discharge. Emergency signs and symptoms, reasons to return to the emergency department discussed with patient. - Vital Signs Vital signs: Temp Pulse Resp BP Pulse Ox 98.8 F 109 H 14 147/102 H 99 10/30/19 00:40 10/30/19 00:29 10/30/19 00:29 10/30/19 00:29 10/30/19 00:29 - Laboratory Result Diagrams: 10/30/19 02:14 10/30/19 02:14 Laboratory results interpreted by me: 10/30/19 10/30/19 02:14 02:14 WBC 12.5 H RDW 14.2 H Absolute Neuts (auto) 9.2 H Sodium 135.0 L Discharge - Discharge Clinical Impression: Diarrhea Qualifiers: Diarrhea type: unspecified type Qualified Code(s): R19.7 - Diarrhea, unspecified Sinusitis Qualifiers: Sinusitis location: maxillary Chronicity: acute Recurrence: not specified as recurrent Qualified Code(s): J01.00 - Acute maxillary sinusitis, unspecified Condition: Good Disposition: HOME, SELF-CARE Additional Instructions: Return to the Emergency Department without delay if any worse. HOME CARE INSTRUCTIONS & INFORMATION: Thank you for choosing us for your medical needs. We hope you're satisfied with the care you received. After you leave, you must properly care for your problem and, at the same time, observe its progress. Any condition can change. Some illnesses can change rapidly over hours or days. If your condition worsens, return to the Emergency Department or see your physician promptly. ABOUT YOUR X-RAYS AND EKG'S: If you had an EKG or X-rays taken, they have been read by the Emergency Physician. The X-rays and EKG's will also be read by a Radiologist or Cyanide Pot Hardener within 24 hours. If discrepancies are noted, you will be notified by telephone. Please be certain the ED has a correct telephone number & address where you can be reached. Also, realize that some fractures or abnormalities do not show up on initial X-rays. If your symptoms continue, see your physician. ABOUT YOUR LABORATORY TEST: If you had laboratory tests, the results have been reviewed by the Emergency Physician. Some test results (for example cultures) may not be available for several days. You will be contacted if any test result shows you need additional treatment. Please be certain the ED has a correct telephone number and address where you can be reached. ABOUT YOUR MEDICATIONS: You will receive instructions on how to take your medicine on the prescription label you receive. Additional information may be provided by the Pharmacy. If you have questions afterwards, call the ED for clarification or further instructions. Some prescribed medications may cause drowsiness. Do not perform tasks such as driving a car or operating machinery without consulting your Pharmacist. If you feel you need a refill of pain medication, your condition will need re-evaluation. Please do not call for a refill of any medication. ABOUT YOUR SIGNATURE: Signature of this document acknowledges to followin. Understanding that you received emergency treatment and that you may be released before al medical problems are known or treated. Please be certain the ED has a correct phone number & address where you can be reached. 2. Acknowledgement that you will arrange for follow-up care as recommended. 3. Authorization for the Emergency Physician to provide information to your follow-up Physician in order to maximize your care. AT ANY TIME, IF YOUR SYMPTOMS CHANGE SIGNIFICANTLY OR WORSEN OR YOU DEVELOP NEW SYMPTOMS, RETURN TO THE EMERGENCY DEPARTMENT IMMEDIATELY FOR RE-EVALUATION. OUR GOAL IS TO PROVIDE EXCELLENT MEDICAL CARE! WE HOPE THAT WE HAVE MET YOUR EXPECTATIONS DURING YOUR EMERGENCY DEPARTMENT VISIT AND THAT YOU FEEL YOU HAVE RECEIVED EXCELLENT CARE! Diarrhea Diarrhea means frequent, watery stools. There are many causes. Any problem that keeps the intestinal tract from absorbing water from the stool can lead to diarrhea. A sudden new diarrhea problem is usually caused by a virus, food sensitivity, toxic bacteria, or drugs. In this case, we expect the problem to go away soon. Testing is done only if you seem seriously ill from the diarrhea. If you have chronic diarrhea, or diarrhea that keeps coming back, we need to find out why. Chronic diarrhea can be due to inflammation of the bowels such as Crohn's disease or ulcerative colitis, food sensitivity such as intolerance to lactose or wheat protein, irritable bowel syndrome, and other problems. If your diarrhea is a significant problem but it's not clear why you have it, we'll refer you to a specialist for further testing. During an episode of diarrhea, drink small amounts (two to six ounces) of clear liquids (soft drinks, sport drinks, herb teas, broth, etc). Take fluids frequently to prevent dehydration. It's usually not a problem to take mild anti- diarrhea medication such as Kaopectate or Pepto-Bismol. As the diarrhea eases, advance to small amounts of bland food (mashed potato, toast) for 24 hours. Call the physician if blood appears in your vomit or stool, if vomiting lasts longer than 24 hours, if the abdominal pain worsens or becomes localized to one area, if you develop high fever, or if you become lightheaded and weak. Sinusitis You have sinusitis, an infection of the sinus cavities of the face. The sinuses are air-filled chambers which open into the inside of the nose. Bacteria and pus fill a sinus, causing pain, drainage, and fever. Sinusitis is treated with antibiotics. Often, expectorants (to thin the sinus mucous) or decongestants (to reduce swelling) are prescribed as well. Healing requires seven to 10 days. Avoid chemical fumes, pollens, dusts, and smoke (especially cigarette smoke). Keep the air humidified in your bedroom and work area and take plenty of liquids by mouth. This condition can be serious if the infection spreads. If your symptoms worsen, or if you develop severe headache, high fever, stiff neck, or a rash, you must call the doctor or return for re-evaluation. Prescriptions: Levofloxacin [Levaquin 750 mg Tablet] 750 mg PO DAILY 4 Days #4 tablet Referrals: RAYO JOHNSON MD [Primary Care Provider] - Follow up as needed I personally performed the services described in the documentation, reviewed and edited the documentation which was dictated to the scribe in my presence, and it accurately records my words and actions.
[2019-10-30] MEDS ORDERED: LEVOFLOXACIN 750 MG TABLET PO ONE (03:55)
[2019-10-30 04:13] VITALS: BP 120/79
== END 2019-10-30 04:15 | disposition home or self-care (01) ==
LOC: ER 00:25
DX: R10.30 Lower abdominal pain, unspecified (principal); R19.7 Diarrhea, unspecified; K92.1 Melena; J01.00 Acute maxillary sinusitis, unspecified; Z91.018 Allergy to other foods; Z88.0 Allergy status to penicillin
CPT/HCPCS: 99284; 96361; 96374; 36415; 83690; 85025; 81025; 80053; 81001; J2765; J7030

== ENCOUNTER 2019-12-14 16:16 | Emergency (ER) | payer BC ==
[2019-12-14 16:51] VITALS: BP 120/89
[2019-12-14] MEDS ORDERED: ACETAMINOPHEN 325 MG TABLET PO ONE (17:20)
--- NOTE | 2019-12-14 17:20 | ER Document Report ---
HPI - HPI Patient complains to provider of: Dental pain Time Seen by Provider: 12/14/19 17:13 Pain Level: 4 Context: 34-year-old female no previous medical problems presents to the emergency room complaining of worsening chronic dental pain for the past 2 to 3 weeks. States she has cavities on both the right lower and left lower but is unable to afford to see a dentist and have them fixed. Denies taking any medications for pain. Denies any fevers. States is able to eat and drink without difficulty. Patient also states for the past 2 weeks she has had decreased urination even though she feels like she is drinking plenty of water. She denies any dysuria. She denies any vaginal discharge. Denies any fevers. Associated Symptoms: None Exacerbated by: Food Relieved by: Denies Similar symptoms previously: Yes - Chronic dental pain Recently seen / treated by doctor: No - ROS Systems Reviewed and Negative: Yes All other systems reviewed and negative - CONSTITUTIONAL Constitutional: DENIES: Fever, Chills - EENT Notes: Dental pain - NEURO Neurology: REPORTS: Headache - RESPIRATORY Respiratory: DENIES: Trouble Breathing - URINARY Notes: Decreased urinary output - REPRODUCTIVE Reproductive: DENIES: : - DERM Skin Color: Normal, [place] Skin Problems: None Past Medical History - General Information source: Patient - Social History Smoking Status: Never Smoker Chew tobacco use (# tins/day): No Frequency of alcohol use: None Drug Abuse: None Family History: Arthritis, CAD - Mother [place], CVA, DM, Hyperlipidemia, Hypertension - Past Medical History Cardiac Medical History: Denies: Hx Coronary Artery Disease, Hx Heart Attack, Hx Hypertension Pulmonary Medical History: Denies: Hx Asthma, Hx Bronchitis, Hx COPD, Hx Pneumonia Neurological Medical History: Reports: Hx Migraine. Denies: Hx Cerebrovascular Accident, Hx Seizures Renal/ Medical History: Reports: Hx Ovarian Cysts. Denies: Hx Peritoneal Dialysis GI Medical History: Reports: Hx Crohn's Disease, Hx Gastroesophageal Reflux Disease, Hx Irritable Bowel, Hx Colonoscopy, Hx Endoscopy Musculoskeletal Medical History: Denies Hx Arthritis, Reports Hx Musculoskeletal Deformity, Reports Hx Musculoskeletal Trauma Psychiatric Medical History: Reports: Hx Anxiety, Hx Bipolar Disorder, Hx Depression, Hx Post Traumatic Stress Disorder Past Surgical History: Reports: Hx Gynecologic Surgery - ovarian cyst - Immunizations Immunizations up to date: Yes Hx Diphtheria, Pertussis, Tetanus Vaccination: Yes Hx Pneumococcal Vaccination: 03/15/14 Vertical Provider Document - CONSTITUTIONAL Agree With Documented VS: Yes Exam Limitations: No Limitations General Appearance: Mild Distress - INFECTION CONTROL TRAVEL OUTSIDE OF THE [place] IN LAST 30 DAYS: No - HEENT HEENT: Atraumatic, Normal ENT Exam, Normocephalic. negative: Dental Injury, Pharyngeal Exudate, Pharyngeal Tenderness, Pharyngeal Erythema, Tympanic Membrane Red, Tympanic Membrane Bulging Notes: She has tenderness on palpation to the gums and teeth along the lower right and left lower gumline there is erythema and swelling but no fluctuant abscess palpated. - NECK Neck: Normal Inspection, Supple, Thyroid Normal. negative: Lymphadenopathy- Left, Lymphadenopathy-Right - RESPIRATORY Respiratory: Breath Sounds Normal, No Respiratory Distress, Chest Non-Tender. negative: Rales, Rhonchi, Wheezing - CARDIOVASCULAR Cardiovascular: Regular Rate, Regular Rhythm, No Murmur - GI/ABDOMEN Gastrointestinal: Abdomen Soft, Abdomen Non-Tender. negative: Abdomen Tender, Abdominal Guarding, Abdominal Rebound, No Organomegaly - BACK Back: Normal Inspection. negative: CVA Tenderness-Right, CVA Tenderness-Left - NEURO Level of Consciousness: Awake, Alert, Appropriate Motor/Sensory: No Motor Deficit, No Sensory Deficit - DERM Integumentary: Warm, Dry, No Rash Course - Re-evaluation Re-evalutation: 12/14/19 18:19 Reviewed urine results with patient. She was counseled to take Tylenol and or Motrin for her dental pain. Patient was counseled to take antibiotics as prescribed. Take antibiotics as prescribed.. She was counseled on the need to follow-up with a dentist as soon as possible. Patient was given strict return to the emergency room guidelines. Return for any new or worsening symptoms. All questions were answered. Patient verbalized understanding and agrees with plan of care. 12/14/19 22:39 - Vital Signs Vital signs: Temp Pulse Resp BP Pulse Ox 98.8 F 92 18 120/89 H 99 12/14/19 17:13 12/14/19 16:44 12/14/19 16:44 12/14/19 16:44 12/14/19 16:44 Discharge - Discharge Clinical Impression: Pain, dental, Decreased urine output, Dental abscess Condition: Stable Disposition: HOME, SELF-CARE Instructions: Caring [facility], Clindamycin ([facility]), Toothache ([facility]) Additional Instructions: Medications as prescribed. Tylenol and/or Motrin as needed for pain. Follow-up with a dentist as soon as possible. Return for any new or worsening symptoms. Prescriptions: Clindamycin HCl 300 mg PO QID #40 capsule Referrals: RAYO JOHNSON MD [Primary Care Provider] - Follow up as needed
[2019-12-14 17:59] LABS: APPEARANCE,URINE SLIGHTLY-CLOUDY; BILIRUBIN,URINE NEGATIVE (NEGATIVE); COLOR,URINE YELLOW; GLUCOSE, URINE NEGATIVE (NEGATIVE); KETONES,URINE 20 mg/dL (NEGATIVE); LEUKOCYTE ESTERASE,URINE NEGATIVE (NEGATIVE); NITRITE,URINE NEGATIVE (NEGATIVE); PROTEIN,URINE NEGATIVE (NEGATIVE); URINE SPECIFIC GRAVITY 1.026; UROBILINOGEN,URINE NEGATIVE mg/dL (<2.0)
== END 2019-12-14 18:32 | disposition home or self-care (01) ==
LOC: ER 16:16
DX: K04.7 Periapical abscess without sinus (principal); G89.29 Other chronic pain; R68.89 Other general symptoms and signs; R51 Headache
CPT/HCPCS: 81001; 81025; 99283

== ENCOUNTER 2020-02-21 21:28 | Emergency (ER) | payer BC ==
[2020-02-21] MEDS ORDERED: DICYCLOMINE HCL 10 MG CAPSULE PO ONE (22:38)
--- NOTE | 2020-02-21 22:41 | ER Document Report ---
ED Medical Screen (RME) - General Chief Complaint: Abdominal Pain Stated Complaint: Abdominal pain Time Seen by Provider: 02/21/20 22:38 Primary Care Provider: RAYO JOHNSON MD [Primary Care Provider] - Follow up as needed Mode of Arrival: Ambulatory Information source: Patient Notes: 35-year-old female presented to ED for complaint of abdominal pain. She states that tonight she took some salmon and ate it about 10 minutes later she had severe abdominal pain. She states she does have IBS. She states she also has history of ovarian cyst removed. She states she is not sure which side the ovarian cyst was on or whether they just remove the cyst or the ovary. She states she did have a very small bowel movement yesterday and another small one today. She states she is not constipated she thinks she just needs something to help with the pain in her stomach. She states once before she ate some salmon and she had abdominal pain that time also. She is alert oriented respirations regular nonlabored speaking in full sentences. She states she has not vomiting but she did have some nausea earlier. I have greeted and performed a rapid initial assessment of this patient. A comprehensive ED assessment and evaluation of the patient, analysis of test results and completion of medical decision making process will be conducted by an additional ED providers. TRAVEL OUTSIDE OF THE [place] IN LAST 30 DAYS: No - Related Data Allergies/Adverse Reactions: cinnamon [Cinnamon] Allergy (Severe, Verified 07/28/19 09:43) MAKES ME SICK Penicillins Allergy (Unknown, Verified 07/28/19 09:43) Past Medical History - Past Medical History Cardiac Medical History: Denies: Hx Coronary Artery Disease, Hx Heart Attack, Hx Hypertension Pulmonary Medical History: Denies: Hx Asthma, Hx Bronchitis, Hx COPD, Hx Pneumonia Neurological Medical History: Reports: Hx Migraine. Denies: Hx Cerebrovascular Accident, Hx Seizures Renal/ Medical History: Reports: Hx Ovarian Cysts. Denies: Hx Peritoneal Dialysis GI Medical History: Reports: Hx Crohn's Disease, Hx Gastroesophageal Reflux Disease, Hx Irritable Bowel, Hx Colonoscopy, Hx Endoscopy Musculoskeltal Medical History: Denies Hx Arthritis, Reports Hx Musculoskeletal Deformity, Reports Hx Musculoskeletal Trauma Psychiatric Medical History: Reports: Hx Anxiety, Hx Bipolar Disorder, Hx Depression, Hx Post Traumatic Stress Disorder Past Surgical History: Reports: Hx Gynecologic Surgery - ovarian cyst - Immunizations Immunizations up to date: Yes Hx Diphtheria, Pertussis, Tetanus Vaccination: Yes Physical Exam - Vital signs Vitals: Temp Pulse Resp BP Pulse Ox 99.0 F 98 20 142/92 H 99 02/21/20 21:57 02/21/20 21:57 02/21/20 21:57 02/21/20 21:57 02/21/20 21:57 Course - Vital Signs Vital signs: Temp Pulse Resp BP Pulse Ox 99.0 F 98 20 142/92 H 99 02/21/20 21:57 02/21/20 21:57 02/21/20 21:57 02/21/20 21:57 02/21/20 21:57 Doctor's Discharge - Discharge Referrals: ARYO JOHNSON MD [Primary Care Provider] - Follow up as needed
[2020-02-21 23:20] LABS: ABSOLUTE BASOPHILS # (AUTO) 0.1 10^3/uL (0.0-0.2); ABSOLUTE EOSINOPHILS # (AUTO) 0.3 10^3/uL (0.0-0.6); ABSOLUTE LYMPHOCYTES (AUTO) 2.7 10^3/uL (0.5-4.7); BASOPHILS % (AUTO) 0.8 % (0-2); EOSINOPHILS % (AUTO) 2.2 % (0-6); HEMATOCRIT 40.4 % (36.0-47.0); HEMOGLOBIN 13.4 g/dL (12.0-15.5); LYMPHOCYTES % (AUTO) 17.7 % (13-45); MEAN CORPUSCULAR HEMOGLOBIN 29.4 pg (27.0-33.4); MEAN CORPUSCULAR HGB CONC 33.1 g/dL (32.0-36.0); MEAN CORPUSCULAR VOLUME 89 fl (80-97); MONOCYTES % (AUTO) 6.7 % (3-13); PLATELET COUNT 354 10^3/uL (150-450); RED BLOOD COUNT 4.55 10^6/uL (3.72-5.28); RED CELL DISTRIBUTION WIDTH 13.8 % (11.5-14.0); SEGMENTED NEUTROPHILS % (AUTO) 72.6 % (42-78); TOTAL CELLS COUNTED % (AUTO) 100 %; WHITE BLOOD COUNT 15.2 10^3/uL (4.0-10.5)
[2020-02-21 23:25] LABS: APPEARANCE,URINE CLOUDY; BILIRUBIN,URINE NEGATIVE (NEGATIVE); COLOR,URINE YELLOW; GLUCOSE, URINE NEGATIVE (NEGATIVE); KETONES,URINE NEGATIVE (NEGATIVE); LEUKOCYTE ESTERASE,URINE TRACE (NEGATIVE); NITRITE,URINE NEGATIVE (NEGATIVE); PROTEIN,URINE 100 mg/dL (NEGATIVE); URINE SPECIFIC GRAVITY 1.028; UROBILINOGEN,URINE NEGATIVE mg/dL (<2.0)
[2020-02-21 23:44] LABS: ALBUMIN 4.1 g/dL (3.5-5.0); ALKALINE PHOSPHATASE 67 U/L (38-126); ANION GAP 7 (5-19); ASPARTATE AMINO TRANSFERASE 19 U/L (14-36); BILIRUBIN,DIRECT 0.3 mg/dL (0.0-0.4); BILIRUBIN,TOTAL 0.6 mg/dL (0.2-1.3); BLOOD UREA NITROGEN 12 mg/dL (7-20); CALCIUM 9.7 mg/dL (8.4-10.2); CARBON DIOXIDE 25 mmol/L (22-30); CHLORIDE 105 mmol/L (98-107); GLUCOSE 101 mg/dL (75-110); POTASSIUM 3.8 mmol/L (3.6-5.0); TOTAL PROTEIN 7.3 g/dL (6.3-8.2)
[2020-02-22] MEDS ORDERED: OXYCODONE-ACETAMINOPHEN 5-325 MG TABLET PO ONE (01:11)
[2020-02-22] MEDS ORDERED: ONDANSETRON 4 MG TAB.RAPDIS PO ONE (01:11)
--- NOTE | 2020-02-22 01:31 | ER Document Report ---
ED GI/ - General Chief Complaint: Abdominal Pain Stated Complaint: Abdominal pain Time Seen by Provider: 02/21/20 22:38 Primary Care Provider: [facility] [Provider Group] - Follow up as needed Mode of Arrival: Ambulatory Notes: Patient is a 35-year-old female who comes emergency department chief complaint of lower abdominal pain. Patient states that she started having severe pain in the lower abdomen/pelvis which felt like severe cramps just prior to arrival. She denies vomiting, fever, flank pain, dysuria, vaginal bleeding or discharge. She states she is not sexually active. She does have a history of ovarian cysts including one that needed to be removed, she also is a history of IBS. She reports normal bowel movements. She denies any other medical history. Patient tells me she thinks that her pain started because she ate some salmon for dinner although she denies that this was spoiled at all. TRAVEL OUTSIDE OF THE [place] IN LAST 30 DAYS: No - Related Data Allergies/Adverse Reactions: cinnamon [Cinnamon] Allergy (Severe, Verified 07/28/19 09:43) MAKES ME SICK Penicillins Allergy (Unknown, Verified 07/28/19 09:43) Past Medical History - General Information source: Patient - Social History Smoking Status: Current Some Day Smoker Frequency of alcohol use: Occasional Drug Abuse: Marijuana Lives with: Family Family History: Arthritis, CAD - Mother [place], CVA, DM, Hyperlipidemia, Hypertension - Past Medical History Cardiac Medical History: Denies: Hx Coronary Artery Disease, Hx Heart Attack, Hx Hypertension Pulmonary Medical History: Denies: Hx Asthma, Hx Bronchitis, Hx COPD, Hx Pneumonia Neurological Medical History: Reports: Hx Migraine. Denies: Hx Cerebrovascular Accident, Hx Seizures Renal/ Medical History: Reports: Hx Ovarian Cysts. Denies: Hx Peritoneal Dialysis GI Medical History: Reports: Hx Crohn's Disease, Hx Gastroesophageal Reflux Disease, Hx Irritable Bowel, Hx Colonoscopy, Hx Endoscopy Musculoskeletal Medical History: Denies Hx Arthritis, Reports Hx Musculoskeletal Deformity, Reports Hx Musculoskeletal Trauma Psychiatric Medical History: Reports: Hx Anxiety, Hx Bipolar Disorder, Hx Depression, Hx Post Traumatic Stress Disorder Past Surgical History: Reports: Hx Gynecologic Surgery - ovarian cyst - Immunizations Immunizations up to date: Yes Hx Diphtheria, Pertussis, Tetanus Vaccination: Yes Hx Pneumococcal Vaccination: 03/15/14 Review of Systems - Review of Systems Constitutional: No symptoms reported EENT: No symptoms reported Cardiovascular: No symptoms reported Respiratory: No symptoms reported Gastrointestinal: See HPI Genitourinary: See HPI Female Genitourinary: See HPI Musculoskeletal: No symptoms reported Skin: No symptoms reported Hematologic/Lymphatic: No symptoms reported Neurological/Psychological: No symptoms reported Physical Exam - Vital signs Vitals: Temp Pulse Resp BP Pulse Ox 99.0 F 98 20 142/92 H 99 02/21/20 21:57 02/21/20 21:57 02/21/20 21:57 02/21/20 21:57 02/21/20 21:57 - Notes Notes: GENERAL: Patient appears mildly uncomfortable but is not in severe distress HEAD: Normocephalic, atraumatic. EYES: Pupils equal, round, and reactive to light. Extraocular movements intact. ENT: Oral mucosa moist, tongue midline. Oropharynx unremarkable. Airway patent. NECK: Full range of motion. Supple. Trachea midline. No lymphadenopathy. LUNGS: Clear to auscultation bilaterally, no wheezes, rales, or rhonchi. No respiratory distress. Non-tender chest wall. HEART: Regular rate and rhythm. No murmur ABDOMEN: There is tenderness in the left lower abdomen/pelvic area especially on the left side. No guarding, no rigidity, no distention, no rebound tenderness. EXTREMITIES: Moves all 4 extremities spontaneously. No edema, normal radial and dorsalis pedis pulses bilaterally. No cyanosis. BACK: no cervical, thoracic, lumbar midline tenderness. No saddle anesthesia, normal distal neurovascular exam. Moves all extremities in full range of motion. NEUROLOGICAL: Alert and oriented x3. Normal speech. Cranial nerves II through XII grossly intact. Strength 5/5 in all extremities. PSYCH: Normal affect, normal mood. SKIN: Warm, dry, normal turgor. No rashes or lesions noted. Course - Re-evaluation Re-evalutation: Patient appears mildly uncomfortable but is not in severe distress. She does h ave pelvic tenderness on exam slightly worse on the left unremarkable. No abdominal guarding. She does have leukocytosis but this is nonspecific given her exam. Chemistry unremarkable, negative, urine shows elevated specific gravity and is nonspecific otherwise. Ultrasound was performed because of patient's location of pain and history. This shows hemorrhagic ovarian cyst which is consistent with her presentation. Discussed pelvic exam but this was declined, patient does not have vaginal discharge and she states she is not sexually active. Patient will be treated symptomatically for ovarian cyst, provided with pain and nausea medication, discussed follow-up and return precau tions. Patient states appreciation and agreement. Stable and well-appearing at time of discharge. - Vital Signs Vital signs: Temp Pulse Resp BP Pulse Ox 99.0 F 98 20 126/89 H 99 02/21/20 21:57 02/21/20 21:57 02/21/20 21:57 02/22/20 04:45 02/21/20 21:57 - Laboratory Result Diagrams: 02/21/20 23:06 02/21/20 23:06 Laboratory results interpreted by me: 02/21/20 02/21/20 02/21/20 23:06 23:06 23:06 WBC 15.2 H Absolute Neuts (auto) 11.0 H Sodium 136.8 L Urine Protein 100 H Urine Blood LARGE H Ur Leukocyte Esterase TRACE H Urine Ascorbic Acid 20 H Discharge - Discharge Clinical Impression: Hemorrhagic ovarian cyst Abdominal pain Qualifiers: Abdominal location: lower abdomen, unspecified Qualified Code(s): R10.30 - Lower abdominal pain, unspecified Condition: Stable Disposition: HOME, SELF-CARE Additional Instructions: You have a hemorrhagic cyst on your left ovary. This is painful but it does resolve with time. Take the pain and nausea medications as needed, you can also take [id number] ibuprofen along with this, and rest. Follow-up with primary care for additional management. Return if you worsen including severe worsening pain, vomiting, fever, or any other concerning symptoms. Prescriptions: Oxycodone HCl/Acetaminophen [Percocet 5-325 mg Tablet] 1 tab PO TID PRN #10 tab PRN Reason: Ondansetron [Zofran Odt 4 mg Tablet] 1 - 2 tab PO Q4H PRN #15 tab.rapdis PRN Reason: For Nausea/Vomiting Forms: Return to Work Referrals: [facility] [Provider Group] - Follow up as needed
--- NOTE | 2020-02-22 03:51 | RADIOLOGY REPORT (SQ) ---
COMPLETED DATE/TME: 02/22/2020 01:11 CLINICAL HISTORY: 35 years, Female, pelvic pain, hx large cysts/removal EXAM: Pelvic ultrasound. TECHNIQUE: Grayscale and Doppler sonogram of the pelvis. Transvaginal technique was used for better evaluation of the pelvic viscera. COMPARISON: 02/02/2016. FINDINGS: Uterus: Anteverted. Measures 9.2 x 5.7 x 4.8 cm. Endometrial stripe: Measures 0.4 cm which is not thickened. Right ovary: Measures 3.1 x 2.1 x 1.9 cm. Normal doppler flow. Left ovary: Measures 5.9 x 3.6 x 3.9 cm. There is a 4.9 x 2.2 x 2.0 cm hemorrhagic cyst. No follow-up imaging is recommended. Normal doppler flow. Other: Free fluid: None. IMPRESSION: Left ovarian hemorrhagic cyst. Otherwise, unremarkable exam. No evidence of ovarian torsion.
[2020-02-22] MEDS ORDERED: HYDROCODONE/ACETAMINOPHEN 5-325 MG (6 TAB/ER DISP) PO PRN (04:17)
[2020-02-22 05:02] VITALS: BP 126/89
== END 2020-02-22 05:03 | disposition home or self-care (01) ==
LOC: ER 21:28
DX: N83.202 Unspecified ovarian cyst, left side (principal); R10.30 Lower abdominal pain, unspecified; R10.2 Pelvic and perineal pain; F17.200 Nicotine dependence, unspecified, uncomplicated; Z88.0 Allergy status to penicillin
CPT/HCPCS: 99284; 36415; 87086; 83690; 85025; 81025; 80053; 81001; 76830; 93976; J3490; S0119

== ENCOUNTER 2020-04-19 06:00 | Emergency (ER) | payer BC ==
[2020-04-19] MEDS ORDERED: ACETAMINOPHEN 325 MG TABLET PO ONE (06:57)
--- NOTE | 2020-04-19 13:21 | ER Document Report ---
ED Extremity Problem, Lower - General Chief Complaint: Foot Pain Stated Complaint: FOOT PAIN, PTSD Time Seen by Provider: 04/19/20 08:51 Mode of Arrival: Ambulatory Information source: Patient TRAVEL OUTSIDE OF THE [place] IN LAST 30 DAYS: No - HPI Notes: Patient presents complaining of right foot pain. She states it mainly hurts on the bottom and in the arch of her foot. It is worse with ambulation and better without it. No significant radiation of the pain. It is mild to moderate when it occurs. It does occur randomly and is intermittent. She has no left foot pain. No known injuries or trauma. Patient also states she has a history of PTSD and has been having trouble sleeping. She states that she does not feel like she is under increased stress but she may be having stress that she is suppressing. - Related Data Allergies/Adverse Reactions: cinnamon [Cinnamon] Allergy (Severe, Verified 04/19/20 12:22) MAKES ME SICK Penicillins Allergy (Unknown, Verified 04/19/20 12:22) Past Medical History - General Information source: Patient - Social History Smoking Status: Never Smoker Frequency of alcohol use: None Drug Abuse: None Family History: Arthritis, CAD - Mother [place], CVA, DM, Hyperlipidemia, Hypertension - Past Medical History Cardiac Medical History: Denies: Hx Coronary Artery Disease, Hx Heart Attack, Hx Hypertension Pulmonary Medical History: Denies: Hx Asthma, Hx Bronchitis, Hx COPD, Hx Pneumonia Neurological Medical History: Reports: Hx Migraine. Denies: Hx Cerebrovascular Accident, Hx Seizures Renal/ Medical History: Reports: Hx Ovarian Cysts. Denies: Hx Peritoneal Dialysis GI Medical History: Reports: Hx Crohn's Disease, Hx Gastroesophageal Reflux Disease, Hx Irritable Bowel, Hx Colonoscopy, Hx Endoscopy Musculoskeletal Medical History: Denies Hx Arthritis, Reports Hx Musculoskeletal Deformity, Reports Hx Musculoskeletal Trauma Psychiatric Medical History: Reports: Hx Anxiety, Hx Bipolar Disorder, Hx Depression, Hx Post Traumatic Stress Disorder Past Surgical History: Reports: Hx Gynecologic Surgery - ovarian cyst - Immunizations Immunizations up to date: Yes Hx Diphtheria, Pertussis, Tetanus Vaccination: Yes Hx Pneumococcal Vaccination: 03/15/14 Review of Systems - Review of Systems Constitutional: denies: Chills, Fever Cardiovascular: denies: Chest pain, Palpitations Respiratory: denies: Cough, Short of breath -: Yes All other systems reviewed and negative Physical Exam - Vital signs Vitals: Temp Pulse Resp BP Pulse Ox 98.5 F 106 H 20 144/104 H 98 04/19/20 06:06 04/19/20 06:06 04/19/20 06:06 04/19/20 06:06 04/19/20 06:06 Interpretation: Normal - General General appearance: Appears well, Alert - HEENT Head: Normocephalic, Atraumatic Eyes: Normal Pupils: PERRL - Respiratory Respiratory status: No respiratory distress Chest status: Nontender Breath sounds: Normal Chest palpation: Normal - Cardiovascular Rhythm: Regular Heart sounds: Normal auscultation Murmur: No - Abdominal Inspection: Normal Distension: No distension Bowel sounds: Normal Tenderness: Nontender Organomegaly: No organomegaly - Back Back: Normal, Nontender - Extremities General upper extremity: Normal inspection, Nontender, Normal color, Normal ROM, Normal temperature General lower extremity: Normal inspection, Normal color, Normal ROM, Normal temperature, Other - Right foot has some tenderness to the sole of the foot consistent with possible plantar fasciitis. - Neurological Neuro grossly intact: Yes Cognition: Normal Orientation: AAOx4 [place] Coma Scale Eye Opening: Spontaneous [place] Coma Scale Verbal: Oriented [place] Coma Scale Motor: Obeys Commands [place]im Coma Scale Total: 15 Speech: Normal Motor strength normal: LUE, RUE, LLE, RLE Sensory: Normal - Psychological Associated symptoms: Anxious, Unable to sleep - Skin Skin Temperature: Warm Skin Moisture: Dry Skin Color: Normal Course - Re-evaluation Re-evalutation: 04/19/20 13:19 Patient has an exam most consistent with plantar fasciitis. She does not have tenderness that would require imaging. I have educated patient about how to appropriately treat plantar fasciitis as well as about need to follow-up with podiatry. Patient also has been having some trouble sleeping and states she has some trouble with her PTSD. Behavioral health was consulted and has given some medication recommendations as well as given the patient resources for the community follow-up. - Vital Signs Vital signs: Temp Pulse Resp BP Pulse Ox 98.5 F 106 H 20 144/104 H 98 04/19/20 06:06 04/19/20 06:06 04/19/20 06:06 04/19/20 06:06 04/19/20 06:06 Discharge - Discharge Clinical Impression: Plantar fasciitis Insomnia Qualifiers: Insomnia type: due to other mental disorder Qualified Code(s): F51.05 - Insomnia due to other mental disorder; F99 - Mental disorder, not otherwise specified Condition: Stable Disposition: HOME, SELF-CARE Instructions: Insomnia ([facility]), Plantar Fasciitis or Heel Spur ([facility]) Additional Instructions: follow up with podiatry and behavioral health as soon as possible Prescriptions: Prazosin HCl 2 mg PO QHS 30 Days #30 capsule Meloxicam [Mobic 7.5 mg Tablet] 7.5 mg PO DAILY 30 Days #30 tablet Forms: Return to Work Referrals: MARKO BURNS DPM [ACTIVE STAFF] - Follow up in 1 week
[2020-04-19 13:53] VITALS: BP 120/90
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
== END 2020-04-19 13:53 | disposition home or self-care (01) ==
LOC: ER 06:00
DX: F51.05 Insomnia due to other mental disorder (principal); F99 Mental disorder, not otherwise specified; M79.671 Pain in right foot; F43.10 Post-traumatic stress disorder, unspecified; Z88.0 Allergy status to penicillin
CPT/HCPCS: 82962; 99284